=== PATIENT | female | born 1965 | race Caucasian/White ===

== ENCOUNTER → 2017-09-05 14:50 | Outpatient (CLI) | payer OTHER, SELFPAY ==
[2017-09-05 18:12] LABS: Absolute Lymphocyte Count 2.26 X10^3/ul (0.83-4.51); Absolute Neutrophil Count 4.5 X10^3/uL (2.0-7.7); Basophil# 0.05 X10^3/uL; Basophil% 0.6 % (0-1); Eosinophil# 0.19 X10^3/uL; Eosinophils% 2.4 % (0-5); Hematocrit 41.1 % (37-47); Hemoglobin 13.1 g/dl (12.0-15.0); Lymphocyte # 2.26 X10^3/ul (4.0); Mean Corp Hgb Conc 31.9 g/gl (32-36); Mean Corpuscular Hgb 27.1 pg (27.0-32.0); Mean Corpuscular Volume 85.1 fL (81-99); Mean Platelet Vol. 10.2 fl (6.2-12.0); Monocyte# 0.82 X10^3/uL; Monocyte% 10.5 % (0-10); Neutrophil # 4.46 X10^3/uL (2.7-7.7); Neutrophil % 57.4 % (47-70); Platelet Count 292 K/mm3 (150-450); RBC Distribution Width CV 13.9 % (11.6-14.6); RBC Distribution Width SD 43.3 fl (35.1-43.9); Red Blood Count 4.83 M/mm3 (4.2-5.4); White Blood Count 7.8 K/mm3 (4.4-11.0)
[2017-09-05 18:29] LABS: Anion Gap 8 (5-15); BUN 23 mg/dL (7-18); BUN/Creat Ratio 21.7 RATIO (10-20); Calcium,Total 9.3 mg/dL (8.5-10.1); Chloride 104 mmol/L (98-107); Cholesterol 211 mg/dL (200); Creatinine, Serum 1.06 mg/dL (0.55-1.02); EST Glomerular Filtration Rate 58 mL/min (>60); Est Glom Filt Rate - Afr Amer 70 mL/min (>60); Glucose 94 mg/dL (74-106); High Density Lipoprotein 58 mg/dL; Potassium 3.6 mmol/L (3.5-5.1); Sodium Level 142 mmol/L (136-145); Thyroid Stim Hormone (TSH) 1.24 uIU/mL (0.358-3.74); Triglycerides 146 mg/dL; Very Low Density Lipoprotein 29 mg/dL (5-40)
[2017-09-05 18:30] LABS: POSITIVE COUNT NO; POSITIVE DIFFERENTIAL NO; POSITIVE MORPHOLOGY NO
== END ==
PROVIDERS: Family Provider Family Medicine; PCP Family Medicine; Visit Provider Family Medicine
DX: Z00.00 Encounter for general adult medical examination without abnormal findings (principal); F32.9 Major depressive disorder, single episode, unspecified
CPT/HCPCS: 36415; 80048; 80061; 84443; 85025

== ENCOUNTER → 2019-09-13 16:31 | Outpatient (CLI) | payer BC, SELFPAY ==
--- NOTE | 2019-09-13 16:36 | RAD_ITS ---
STUDY: X-RAY - LUMBAR SPINE REASON FOR EXAM: Female, 53 years old. Low back pain and into both legs x 5 months TECHNIQUE: 5 view(s) of the lumbar spine were obtained. COMPARISON: 2009 FINDINGS: Normal lumbar lordosis. There is no substantial scoliosis. There is a normal alignment of the vertebrae in the lateral view from L1 to L4. There is a grade 1 spondylolisthesis at L4-5. L5 and S1 align anatomically. Normal vertebral bodies and endplates. Mild disc space narrowing throughout the lumbar spine. There is no demonstrated fracture. The soft tissue structures are unremarkable. RAD/L/S Spine Min 4 Views IMPRESSION: Mild degenerative changes with grade 1 spondylolisthesis at L4-5 Electronically Signed: Ervin Zuniga MD at 17:54 EDT , Service support ,
== END ==
PROVIDERS: PCP Family Medicine; Referring Provider Family Medicine; Visit Provider Family Medicine
DX: M54.9 Dorsalgia, unspecified (principal)
CPT/HCPCS: 72110

== ENCOUNTER 2020-02-25 01:08 | Emergency (ER) | payer BC, SELFPAY ==
[2020-02-25 01:09] VITALS: BP 110/71; PULSE 75; RESP 16; TEMP 36.6; O2SAT 96; BMI 34.3
--- NOTE | 2020-02-25 01:17 | RAD_ITS ---
STUDY: X-RAY - PELVIS AND RIGHT HIP REASON FOR EXAM: Female, 54 years old. Mid femur pain after fall. TECHNIQUE: 3 views of the pelvis and hip. COMPARISON: Right femur February 25, 2020. CT abdomen and pelvis April 27, 2016. FINDINGS: There is a non-specific bowel gas pattern. Normal visualized soft tissue structures. Normal bilateral iliac wings, sacroiliac joints and visualized sacrum. Normal bilateral superior and inferior pubic rami. Normal pubic symphysis. Normal bilateral ischial tuberosities. Normal visualized femoral head. Normal acetabulum. Normal hip joint. There are several sclerotic densities overlying the inferior left iliac bone compatible with incidental bone islands unchanged since April 2016. RAD/HIP, UNI W/ Pelvis 2-3 Views IMPRESSION: No acute findings are in the pelvis or right hip. Electronically Signed: Dipak Young MD at 2:02 EST , Service support ,
--- NOTE | 2020-02-25 01:17 | RAD_ITS ---
STUDY: X-RAY - RIGHT FEMUR REASON FOR STUDY: Female, 54 years old. Femur pain after fall. TECHNIQUE: 4 view(s) of the femur. COMPARISON: None. FINDINGS: Normal visualized femur. Normal visualized soft tissue structure. On the lateral view obliquely oriented linear lucency, posterior cortex of the midshaft likely representing an incidental nutrient canal. RAD/Femur Min 2 Views IMPRESSION: Normal x-ray examination of the femur as above. Electronically Signed: Dipak Young MD at 2:05 EST , Service support ,
--- NOTE | 2020-02-25 01:17 | ED.VIS.GEN ---
History of Present Illness Chief Complaint: Lower Extremity Injury Informant: Patient Narrative: Patient stated that she had a fall just prior to arrival. She was walking her dog who was chasing a possum and pulled her over. She is having pain in the right buttock region with some radicular pain down the posterior hamstring. Worsened by movement. She is unsure if she fell on the side but she is having pain only in this area. History of labral tear in the right hip that she is going to see orthopedics for but has not seen yet. This feels different. Worse by movement. Was unable to ambulate brought in by squad who gave her intramuscular fentanyl just prior to arrival. She continues to have pain however. Past Medical History - Allergies and Home Meds Allergies/Adverse Reactions: Allergies morphine Adverse Reaction (Verified 02/25/20 01:12) Vomiting Primary Care Physician: Maciel Castaneda MD [Primary Care Provider] - Prior records reviewed: Yes Past Medical History: - - Hypertension Surgical History: - - Reviewed Smoking Status: Never smoker Alcohol: None Drugs: None Review of Systems General: Denies: Chills, Fever, Sweats Eyes: Denies: Visual changes - bilaterally, Diplopia ENT: Denies: Rhinorrhea, Sore throat Cardiovascular: Denies: Chest pain, Palpitations Respiratory: Denies: Dyspnea, Cough, Dyspnea on exertion Gastrointestinal: Denies: Abdominal pain, Nausea, Vomiting, Diarrhea, Melena, Hematochezia Genitourinary: Denies: Dysuria, Hematuria, Frequency Musculoskeletal: Reports: Extremity Pain - See HPI. Denies: Back pain Skin: Denies: Rash, Wounds Neurological: Denies: Headache, Weakness, Numbness Physical Exam Vital Signs/Narrative: Vital Signs Temp Pulse Resp BP Pulse Ox 02/25/20 01:09 97.9 F 75 16 110/71 96 General: Well nourished, Well developed, No Acute Distress Head: Normocephalic, Atraumatic Eyes: Perrl, EOMI ENT: Moist mucous membranes, No rhinorrhea Neck: Supple, Nontender Cardiovascular: Regular rate, Regular rhythm, No murmurs Respiratory: No distress, CTA bilaterally, Chest nontender Abdomen: Soft, Nontender, Nondistended, Normal bowel sounds Back: Nontender, Normal Inspection Extremities: Nontender, No edema, Tenderness - Tenderness in the right buttock region deep. Decreased range of motion secondary to pain. Skin: Normal color, No rash Neurological: Alert, Oriented x3, Cranial nerves II-XII grossly intact, Normal Strength, Normal Sensation Psychological: Normal affect, Normal Mood Diagnostic/Tx/Re-eval - Medical Decision Making X-ray of the right hip and femur obtained. Is negative. At this time patient reevaluated. At this time I think she has a hamstring strain or tear. She has difficulty doing a hamstring curl. I do not suspect this is sciatica. She was given Sergey wrap and crutches given an injection of Dilaudid for pain. She will follow-up as an outpatient ED Disposition - Plan for ED Patient: Disposition: Home or Assisted Living Diagnosis: Hamstring injury Instructions: ED Strain Muscle Ext Prescriptions: Oxycodone HCl/Acetaminophen [Percocet 5/325] 1 - 2 tab PO Q6H PRN PRN 3 Days #12 tab PRN Reason: Pain Prescription Printed Referrals: Maciel Castaneda MD [Primary Care Provider] -
[2020-02-25] MEDS: HYDROmorphone 1 MG/ML Syringe IM (02:26)
[2020-02-25 03:17] VITALS: BP 98/60; PULSE 72; RESP 18; O2SAT 98
== END 2020-02-25 03:19 | disposition home or self-care (01) ==
PROVIDERS: Emergency Provider Emergency Medicine; PCP Family Medicine
DX: S76.301A Unspecified injury of muscle, fascia and tendon of the posterior muscle group at thigh level, right thigh, initial encounter (principal); W19.XXXA Unspecified fall, initial encounter; Y93.K1 Activity, walking an animal; Y92.9 Unspecified place or not applicable; Y99.9 Unspecified external cause status; I10 Essential (primary) hypertension; Z79.899 Other long term (current) drug therapy
CPT/HCPCS: 73502; 73552; 96372; 99285

== ENCOUNTER 2024-10-24 10:38 | Inpatient (IN) | payer BC, SELFPAY ==
[2024-10-24] VITALS (9 sets, daily range): BP systolic 118–141; BP diastolic 62–90; PULSE 63–93; RESP 14–25; TEMP 36.2–36.4; O2SAT 96–100; BMI 29.2; BMI 29.0
--- NOTE | 2024-10-24 11:07 | CT_ITS ---
PROCEDURE: ORB SELLA POST FOSSA EAR W/CON 10/24/2024 REASON FOR EXAM: RIGHT EYE PAIN AND SWELLING TECHNIQUE: ORB SELLA POST FOSSA EAR W/CON CONTRAST: Isovue 370 VOLUME: 100 mL One or more dose reduction techniques were used (e.g., Automated exposure control, adjustment of the mA and/or kV according to patient size, use of iterative reconstruction technique). RADIATION DOSE SUMMARY: CTDlvol: 29.38 mGy DLP: 429.92 mGycm COMPARISON: None FINDINGS: Globes: Unremarkable Extraocular Muscles: Unremarkable Orbits: There is evidence of a 3.3 cm x 1.4 cm by 2.1 cm soft tissue mass in the extraconal space along the medial aspect of the right orbit causing bony erosion/destruction of the medial wall of the right ethmoid sinus. A neoplastic process should be ruled out. Lacrimal Glands: Unremarkable Bones: Bony destruction along the medial aspect of the right ethmoid sinus. Other: Visualized paranasal sinuses and intracranial structures: Mucosal thickening of the right maxillary sinus. CT/Orb Sella Post Fossa Ear W/CON IMPRESSION: Soft tissue mass along the medial extraconal space of the right orbit with bony erosion/destruction of the medial wall of the right ethmoid sinus. A neoplastic process should be ruled. Reading Location: [place] [id number]
--- NOTE | 2024-10-24 11:07 | CT_ITS ---
PROCEDURE: ORB SELLA POST FOSSA EAR W/CON 10/24/2024 REASON FOR EXAM: RIGHT EYE PAIN AND SWELLING TECHNIQUE: ORB SELLA POST FOSSA EAR W/CON CONTRAST: Isovue 370 VOLUME: 100 mL One or more dose reduction techniques were used (e.g., Automated exposure control, adjustment of the mA and/or kV according to patient size, use of iterative reconstruction technique). RADIATION DOSE SUMMARY: CTDlvol: 29.38 mGy DLP: 429.92 mGycm COMPARISON: None FINDINGS: Globes: Unremarkable Extraocular Muscles: Unremarkable Orbits: There is evidence of a 3.3 cm x 1.4 cm by 2.1 cm soft tissue mass in the extraconal space along the medial aspect of the right orbit causing bony erosion/destruction of the medial wall of the right ethmoid sinus. A neoplastic process should be ruled out. Lacrimal Glands: Unremarkable Bones: Bony destruction along the medial aspect of the right ethmoid sinus. Other: Visualized paranasal sinuses and intracranial structures: Mucosal thickening of the right maxillary sinus. CT/Orb Sella Post Fossa Ear W/CON IMPRESSION: Soft tissue mass along the medial extraconal space of the right orbit with bony erosion/destruction of the medial wall of the right ethmoid sinus. A neoplastic process should be ruled. Reading Location: [place] [id number]
--- NOTE | 2024-10-24 11:15 | EX.ED.VIS.EY ---
HPI History of Present Illness Chief Complaint: Eye Problem Narrative Narrative: Patient is a 59-year-old female with past medical history of hyperlipidemia, GERD, hypertension, history of kidney cancer, ductal surgery on her right eye few years ago who presents to the emergency department chief complaint of right eye pain. States that she started develop discomfort on Monday and notes that she also had a headache associated with this. States that she feels like her vision is normal out of that eye she states that she followed up with her primary care physician originally and they ultimately sent her here to the emergency department to be further evaluated. Patient denies any known injuries denies any contact use. Patient feels that her right eyelid is droopy and states that she does have some discomfort if she attempts to move her eye. [facility] Medical History Hyperlipidemia Acid reflux Hypertension History of kidney cancer Home Medications ?Medication ?Instructions ?Recorded ?Last Taken ?Type lisinopril 20 mg tablet 20 mg PO DAILY 02/25/20 Unknown History pantoprazole 40 mg tablet,delayed 40 mg PO DAILY 02/25/20 Unknown History release permethrin 5 % topical cream 60 gm TRANSDERM. DAILY 02/25/20 Unknown History atorvastatin 10 mg tablet 10 mg PO QHS cholesterol 10/24/24 Unknown History estradiol 1 mg tablet 1 mg PO DAILY 10/24/24 Unknown History Allergy/AdvReac Type Severity Reaction Status Date / Time morphine AdvReac Vomiting Verified 10/24/24 10:39 Surgical History Hx of eye surgery Hx of hysterectomy History of kidney surgery History of back surgery Social History Smoking Status: Never smoker ROS ROS ED ROS Narrative Constitutional: Denies any fevers, chills, headaches Eyes: Complains of right eye pain as noted above denies double vision blurry vision Cardiovascular: Denies chest pain Neurological: Denies numbness, aches, tingling Skin: Denies any rashes or lesions EXAM Physical Exam Narrative Exam Narrative: General: Patient lying in bed rest comfortably did not appear to be in acute distress Head: Atraumatic, normocephalic Eyes: PERRL bilaterally, EOMI bilaterally, no conjunctival injection noted, fluorescein stain performed and no uptake noted no concern for nail abrasion, no Sabino sign, intraocular pressure was noted be 18 Neck: Soft, supple, trachea midline Cardiovascular: Regular rate and rhythm Extremities: +5/5 strength noted in the bilateral upper and lower extremities Neurological: Patient following commands and that she was at [facility] year is 2024 Skin: Warm, dry, intact no rashes lesions noted Const Vital Signs: 10/24/24 10:39 Temperature 97.1 F L Temperature Source Temporal Pulse Rate 63 Respiratory Rate 14 Blood Pressure 120/85 H Blood Pressure Mean 96 Pulse Ox 98 Oxygen Delivery Method Room Air MDM MDM MDM Narrative Medical decision making narrative: Patient is a 59-year-old female who presented to the emergency department chief complaint of right eye pain. On the differential diagnosis includes but limited to preseptal cellulitis, orbital cellulitis, acute angle-closure glaucoma, corneal abrasion. Once workup is obtained reviewed she will be reevaluated. I reviewed the records faxed to PCPs office and she was sent here for concern for a serious underlying condition per documentation physician business office assistant Parth. Patient's BMP reviewed showed sodium was normal 139, potassium normal 4.3, creatinine 1.12. Patient's CT orbit was reviewed and showed soft tissue mass along the medial extraconal space of the right orbit with bony erosion/destruction of the medial wall of the right ethmoid sinus a neoplastic process should be ruled out. I called and spoke with on-call drying can worker Dr. Martins who is recommending transfer as she needs this further evaluated and is requesting transfer to [facility] or [facility]. Patient had her partial kidney resection after cancer through the [facility] system therefore I reached out to [facility]. I spoke with tumor specialist and he will except the patient for transfer. I notified the patient who is agreeable this plan all question concerns answered. Discharge Plan Triage Chief Complaint: Eye Problem ED Provider: Ar Medley Dx/Rx/DC Orders Clinical Impression: Mass of eye, right, History of kidney cancer, Hypertension, Hyperlipidemia Prescriptions: No Action lisinopril 20 MG tablet 20 mg PO DAILY permethrin 60 GM cream 60 gm TRANSDERM. DAILY pantoprazole 40 MG tablet 40 mg PO DAILY atorvastatin 10 mg tablet 10 mg PO QHS estradiol 1 mg tablet 1 mg PO DAILY Primary Care Provider: Maciel Castaneda Referrals: Maciel Castaneda MD [Primary Care Provider] - Print Language: Tanzanian Disposition Disposition: DC/Tx to Another Type of HCF
--- NOTE | 2024-10-24 11:15 | EX.ED.VIS.EY ---
HPI History of Present Illness Chief Complaint: Eye Problem Narrative Narrative: Patient is a 59-year-old female with past medical history of hyperlipidemia, GERD, hypertension, history of kidney cancer, ductal surgery on her right eye few years ago who presents to the emergency department chief complaint of right eye pain. States that she started develop discomfort on Monday and notes that she also had a headache associated with this. States that she feels like her vision is normal out of that eye she states that she followed up with her primary care physician originally and they ultimately sent her here to the emergency department to be further evaluated. Patient denies any known injuries denies any contact use. Patient feels that her right eyelid is droopy and states that she does have some discomfort if she attempts to move her eye. [facility] Medical History Hyperlipidemia Acid reflux Hypertension History of kidney cancer Home Medications ?Medication ?Instructions ?Recorded ?Last Taken ?Type lisinopril 20 mg tablet 20 mg PO DAILY 02/25/20 Unknown History pantoprazole 40 mg tablet,delayed 40 mg PO DAILY 02/25/20 Unknown History release permethrin 5 % topical cream 60 gm TRANSDERM. DAILY 02/25/20 Unknown History atorvastatin 10 mg tablet 10 mg PO QHS cholesterol 10/24/24 Unknown History estradiol 1 mg tablet 1 mg PO DAILY 10/24/24 Unknown History Allergy/AdvReac Type Severity Reaction Status Date / Time morphine AdvReac Vomiting Verified 10/24/24 10:39 Surgical History Hx of eye surgery Hx of hysterectomy History of kidney surgery History of back surgery Social History Smoking Status: Never smoker ROS ROS ED ROS Narrative Constitutional: Denies any fevers, chills, headaches Eyes: Complains of right eye pain as noted above denies double vision blurry vision Cardiovascular: Denies chest pain Neurological: Denies numbness, aches, tingling Skin: Denies any rashes or lesions EXAM Physical Exam Narrative Exam Narrative: General: Patient lying in bed rest comfortably did not appear to be in acute distress Head: Atraumatic, normocephalic Eyes: PERRL bilaterally, EOMI bilaterally, no conjunctival injection noted, fluorescein stain performed and no uptake noted no concern for nail abrasion, no Sabino sign, intraocular pressure was noted be 18 Neck: Soft, supple, trachea midline Cardiovascular: Regular rate and rhythm Extremities: +5/5 strength noted in the bilateral upper and lower extremities Neurological: Patient following commands and that she was at [facility] year is 2024 Skin: Warm, dry, intact no rashes lesions noted Const Vital Signs: 10/24/24 10:39 Temperature 97.1 F L Temperature Source Temporal Pulse Rate 63 Respiratory Rate 14 Blood Pressure 120/85 H Blood Pressure Mean 96 Pulse Ox 98 Oxygen Delivery Method Room Air MDM MDM MDM Narrative Medical decision making narrative: Patient is a 59-year-old female who presented to the emergency department chief complaint of right eye pain. On the differential diagnosis includes but limited to preseptal cellulitis, orbital cellulitis, acute angle-closure glaucoma, corneal abrasion. Once workup is obtained reviewed she will be reevaluated. I reviewed the records faxed to PCPs office and she was sent here for concern for a serious underlying condition per documentation physician geriatric nursing assistant Parth. Patient's BMP reviewed showed sodium was normal 139, potassium normal 4.3, creatinine 1.12. Patient's CT orbit was reviewed and showed soft tissue mass along the medial extraconal space of the right orbit with bony erosion/destruction of the medial wall of the right ethmoid sinus a neoplastic process should be ruled out. I called and spoke with on-call cane stripper Dr. Martins who is recommending transfer as she needs this further evaluated and is requesting transfer to [facility] or [facility]. Patient had her partial kidney resection after cancer through the [facility] system therefore I reached out to [facility]. I spoke with tumor specialist and he will except the patient for transfer. I notified the patient who is agreeable this plan all question concerns answered. Discharge Plan Triage Chief Complaint: Eye Problem ED Provider: Ar Medley Dx/Rx/DC Orders Clinical Impression: Mass of eye, right, History of kidney cancer, Hypertension, Hyperlipidemia Prescriptions: No Action lisinopril 20 MG tablet 20 mg PO DAILY permethrin 60 GM cream 60 gm TRANSDERM. DAILY pantoprazole 40 MG tablet 40 mg PO DAILY atorvastatin 10 mg tablet 10 mg PO QHS estradiol 1 mg tablet 1 mg PO DAILY Primary Care Provider: Maciel Castaneda Referrals: Maciel Castaneda MD [Primary Care Provider] - Print Language: Zambian Disposition Disposition: DC/Tx to Another Type of HCF
[2024-10-24] MEDS: Tetracaine 0.5% Ophthalmic Bottle 1 DRP RIGHT EYE (11:23)
[2024-10-24 12:10] LABS: Anion Gap 9 (5-15); BUN 19 mg/dL (4-19); BUN/Creat Ratio 17.1 RATIO (10-20); Calcium,Total 9.8 mg/dL (7.6-11.0); Carbon Dioxide 27.0 mmol/L (21.0-32.0); Chloride 103 mmol/L (98-108); Estimated Creatinine Clearance 58.45 ml/min (50-250); Glucose 109 mg/dL (70-99); Potassium 4.3 mmol/L (3.3-5.1)
--- NOTE | 2024-10-24 18:18 | PCA ---
CALLED [facility] AND FAXED FACE SHEET AND SENT IMAGES. THEY ACCEPTED PATIENT AT MAIN. JUST WAITING FOR A BED.
--- NOTE | 2024-10-24 18:18 | PCA ---
CALLED [facility] AND FAXED FACE SHEET AND SENT IMAGES. THEY ACCEPTED PATIENT AT MAIN. JUST WAITING FOR A BED.
--- NOTE | 2024-10-24 20:29 | CM.ED ---
Social work Reason for referral: support Referral source: case find This patient is known to SW via jain. SW entered patient's room, asking if patient would be okay for SW to visit. Patient accepted SW visit and patient began talking about the concerns patient had regarding the mass found behind patient's eye. Patient thanked SW for time spent with patient; patient denied further needs at this time, stating patient's immediate family members had been in to help support patient as well. Denice Pizarro, VETERINARY TECHNOLOGIST, NON PROFIT JOB TITLES
--- NOTE | 2024-10-24 20:29 | CM.ED ---
Social work Reason for referral: support Referral source: case find This patient is known to SW via nondenominational. SW entered patient's room, asking if patient would be okay for SW to visit. Patient accepted SW visit and patient began talking about the concerns patient had regarding the mass found behind patient's eye. Patient thanked SW for time spent with patient; patient denied further needs at this time, stating patient's immediate family members had been in to help support patient as well. Denice Pizarro, CATERING AND EVENTS MANAGER, ELEVATOR MECHANIC
--- NOTE | 2024-10-24 21:28 | PCM.HP.STD ---
[facility] - General General Date of Admission: 10/24/24 Date of Service: 10/24/24 Chief Complaint: Right eye pain HPI Narrative VIPUL ARCHIBALD, is a 59 F who presented to [facility] ED on 10/24/2024 with right eye pain. CT orbit showed a 3.3 x 1.4 x 2.1 cm soft tissue mass in the extraconal space along the medial right orbit causing bony erosion/obstruction of the medial wall concerning for neoplastic process. Case was discussed with Dr. Rucker with ophthalmology who recommended transfer to a large tertiary center for further evaluation. Patient was accepted to [facility] but unfortunately no bed was available this evening, so hospitalist was contacted for admission. I saw the patient at bedside in the ED, son was present. Patient was sitting back comfortably in bed, conversing normally, in no acute distress. She had been given 2 doses of Tylenol 1000 mg during the day today for pain with moderate improvement in pain. However, she was started to have more pain again currently. Has morphine on allergy list but states she had vomiting with morphine when she was over 25 years ago. Thinks she has tolerated oxycodone without issue in the past. Patient's medical history is notable for renal cell carcinoma of the right kidney during a one third partial nephrectomy at [facility] in 2022. Has had no recurrent issues with this per her report. History otherwise significant for hypertension, hyperlipidemia and GERD. He denies any other recent issues with her health. Will be admitted for further management. [facility] Medical History Hyperlipidemia Acid reflux Hypertension History of kidney cancer Home Medications ?Medication ?Instructions ?Recorded ?Last Taken ?Type lisinopril 20 mg tablet 20 mg PO DAILY 02/25/20 Unknown History pantoprazole 40 mg tablet,delayed 40 mg PO DAILY 02/25/20 Unknown History release atorvastatin 10 mg tablet 10 mg PO QHS cholesterol 10/24/24 Unknown History estradiol 1 mg tablet 1 mg PO DAILY 10/24/24 Unknown History Allergy/AdvReac Type Severity Reaction Status Date / Time morphine AdvReac Vomiting Verified 10/24/24 10:39 Surgical History Hx of eye surgery Hx of hysterectomy History of kidney surgery History of back surgery Social History Smoking Status: Never smoker ROS Constitutional Constitutional: Denies chills, fatigue, fever(s) or weakness Eyes Eyes: Reports blurry vision, change in vision and eye pain; Denies discharge from eye(s) ENT HEENT: Denies sinus pressure or sore throat Cardiovascular Cardiovascular: Denies chest pain Respiratory/Chest Respiratory/Chest: Denies shortness of breath at rest Gastrointestinal Gastrointestinal: Denies abdominal pain Neurologic Neurologic: Reports headache(s); Denies dizziness or focal weakness Vital Signs Vital Signs Vital Signs: 10/24/24 10:39 10/24/24 12:41 10/24/24 14:00 Temperature 97.1 F L Temperature Source Temporal Pulse Rate 63 64 93 Respiratory Rate 14 14 16 Blood Pressure 120/85 H 118/62 128/84 H Blood Pressure Mean 96 80 98 Pulse Ox 98 99 99 Oxygen Delivery Method Room Air Room Air Room Air 10/24/24 16:00 10/24/24 18:00 10/24/24 20:00 Temperature Temperature Source Pulse Rate 80 73 Respiratory Rate 25 H 16 Blood Pressure 141/90 H 124/78 H 126/77 H Blood Pressure Mean 107 93 93 Pulse Ox 100 97 97 Oxygen Delivery Method Room Air Room Air Room Air Weight Weight: 82.2 kg Body Mass Index (BMI) 29.2 Physical Exam Const alert, oriented x3, no apparent distress, average body habitus, healthy appearing and well nourished Constitutional Narrative: Pleasant middle-age female, mildly anxious appearing but otherwise sitting back comfortably in bed, conversing normally, in no acute distress. General Appearance: cooperative, comfortable, well kempt and well developed HEENT normocephalic, head/scalp atraumatic, hearing grossly normal bilaterally, nasal mucous membranes and turbinates normal and moist oral mucous membranes Eyes PERRL, EOMs intact bilaterally and conjunctivae normal Neck full ROM, no lymphadenopathy and supple Lymph Lymphatic: no lymphadenopathy noted Chest inspection of chest normal Resp normal respiratory effort, normal air movement, no use of accessory muscles and clear to auscultation bilaterally Cardio regular rate, regular rhythm, no murmurs and peripheral pulses 2+ throughout GI normal to inspection, nondistended, normoactive bowel sounds, soft to palpation, non-tender and non-distended Back/Spine normal ROM Extremity normal to inspection, full ROM and no pedal edema Skin no rashes or lesions noted Psych mental status grossly normal Results Lab / Micro Data 10/24/24 11:15 Labs: Laboratory Results - last 24 hr 10/24/24 11:15: Sodium 139, Potassium 4.3, Chloride 103, Carbon Dioxide 27.0, Anion Gap 9, BUN 19, Creatinine 1.12, Estim Creat Clear Calc 58.45, Est GFR (MDRD) Non-Af 57 L, BUN/Creatinine Ratio 17.1, Glucose 109 H, Calcium 9.[address] Orbit Sella Inner 10/24/24 11:07 IMPRESSION: Soft tissue mass along the medial extraconal space of the right orbit with bony erosion/destruction of the medial wall of the right ethmoid sinus. A neoplastic process should be ruled. Reading Location: [place] [id number] Assessment & Plan Assessment/Plan (1) Mass of eye, right: PLAN: Plan Patient is a 59-year-old female who presented [facility] ED on 10/24/2024 with right eye pain. 1. Right orbital mass with right eye pain ? Admit under admission status to [facility]. CT orbit showed a 3.3 x 1.4 x 2.1 cm soft tissue mass in the extraconal space along the medial right orbit causing bony erosion/obstruction of the medial wall concerning for neoplastic process. Accepted for transfer to [facility], awaiting bed availability. Pain control with Tylenol, oxycodone and IV morphine as needed. Listed allergy to morphine is remote per patient and she is willing to try oxycodone and morphine again for pain. 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 Chronic medical conditions: ? Hypertension: Normotensive on admit. Continue home lisinopril. ? Hyperlipidemia: Continue home statin. ? GERD: Continue home PPI. ? History of renal cancer s/p partial nephrectomy in 2022 DVT prophylaxis: Lovenox CODE STATUS: Full code, verified Expected disposition: Transfer to [facility] Total clinical time spent by myself addressing the patient's medical issues, reviewing all the data, and collaborating with patient's care team: 75 minutes. Charges/Coding Visit Charges Inpatient E&M: 94979 Init Hosp L3
--- NOTE | 2024-10-24 21:33 | PN.HOSP_ITS ---
Hospitalist Note Patient was evaluated in the Emergency Department at [facility] on 10/24/2024. At the time of evaluation, transfer to a tertiary hospital was felt to be in the patient's best interest due to right orbital mass and need for ophthalmology. Attempts were made by the Emergency Department and/or the Hospitalist team to get patient to the appropriate level of care. Although the pt is accepted for transfer to [facility], there are no staffed beds currently available. Given the need for ongoing medical care, patient will be admitted to [facility] on 10/24/2024, and care will be provided here until [facility] has an available staffed bed. Pt and/or family are aware of the transfer, the reasoning behind the need for transfer, and that until a staffed bed becomes available, we will provide evidence-based care to the best of our abilities, with the limitations of care here being fully addressed.
--- NOTE | 2024-10-24 21:33 | PN.HOSP_ITS ---
Hospitalist Note Patient was evaluated in the Emergency Department at [facility] on 10/24/2024. At the time of evaluation, transfer to a tertiary hospital was felt to be in the patient's best interest due to right orbital mass and need for ophthalmology. Attempts were made by the Emergency Department and/or the Hospitalist team to get patient to the appropriate level of care. Although the pt is accepted for transfer to [facility], there are no staffed beds currently available. Given the need for ongoing medical care, patient will be admitted to [facility] on 10/24/2024, and care will be provided here until [facility] has an available staffed bed. Pt and/or family are aware of the transfer, the reasoning behind the need for transfer, and that until a staffed bed becomes available, we will provide evidence-based care to the best of our abilities, with the limitations of care here being fully addressed.
[2024-10-24 23:16] LABS: Hematocrit 38.6 % (37-47); Hemoglobin 12.5 g/dL (12.0-15.0); Immature Granulocytes Count 0.020 X10^3/uL (0.0-0.0); Mean Corp Hgb Conc 32.4 g/dL (32-36); Mean Corpuscular Volume 86.0 fL (81-99); Mean Platelet Vol. 9.5 fl (6.2-12.0); NRBC Flagged by Analyzer 0 % (0-5); Platelet Count 278 K/mm3 (150-450); RBC Distribution Width CV 13.2 % (11.6-14.6); RBC Distribution Width SD 41.3 fl (35.1-43.9); Red Blood Count 4.49 M/mm3 (4.2-5.4); White Blood Count 8.9 K/mm3 (4.4-11.0)
[2024-10-25 03:19] VITALS: BP 101/59; PULSE 60; RESP 16; TEMP 36.9; O2SAT 99
--- NOTE | 2024-10-25 07:01 | PN.HOSP_ITS ---
Reason for Visit Reason for Visit: Diagnoses Other specified disorders of eye and adnexa (10/24/24) Subjective Subjective Patient with no acute overnight events since admission with only noted complaints of mild pressure-like sensation behind her right eye and some dry sensation but otherwise no headache, nausea, emesis, lightheadedness or dizziness. Discussed at length that we are awaiting bed at [facility] and at that point once it is obtained she will be immediately transition there once ride arranged. Did discuss that unfortunately this may take several days. Patient denies fevers, chills, nausea, emesis, abdominal pain, chest pain or dyspnea. Objective Data Objective Data Vital Signs: Vital Signs Temp Pulse Resp BP Pulse Ox O2 Del Method 98.4 F 60 16 101/59 L 99 Room Air 10/25/24 03:19 10/25/24 03:19 10/25/24 03:19 10/25/24 03:19 10/25/24 03:19 10/25/24 03:19 Oxygen Delivery Method Room Air Weight: 179 lb 14.355 oz Body Mass Index (BMI) 29.0 Intake & Output: Intake and Output for Last 24 Hours 10/23/24 10/24/24 10/25/24 23:59 23:59 23:59 Intake Total 200 / 200 Balance 200 / 200 Lab / Micro Data 10/24/24 23:06 10/24/24 11:15 Labs: Laboratory Results - last 24 hr 10/24/24 11:15: Sodium 139, Potassium 4.3, Chloride 103, Carbon Dioxide 27.0, Anion Gap 9, BUN 19, Creatinine 1.12, Estim Creat Clear Calc 58.45, Est GFR (MDRD) Non-Af 57 L, BUN/Creatinine Ratio 17.1, Glucose 109 H, Calcium 9.8 10/24/24 23:06: WBC 8.9, RBC 4.49, Hgb 12.5, Hct 38.6, MCV 86.0, MCH 27.8, MCHC 32.4, RDW Std Deviation 41.3, RDW Coeff of Robbi 13.2, Plt Count 278, MPV 9.5, Immature Gran % (Auto) 0.200, Neut % (Auto) 59.2, Lymph % (Auto) 31.1, [place] % (Auto) 6.3, Eos % (Auto) 2.4, Baso % (Auto) 0.8, Absolute Neuts (auto) 5.3, Absolute Lymphs (auto) 2.76, Nucleated RBC % 0 Radiography Diagnostic Testing: Radiology Impression CT Orbit Sella Inner 10/24/24 11:07 IMPRESSION: Soft tissue mass along the medial extraconal space of the right orbit with bony erosion/destruction of the medial wall of the right ethmoid sinus. A neoplastic process should be ruled. Reading Location: [facility] Physical Exam Narrative Physical Examination: General: Awake, alert, oriented x 3 and cooperative, seated upright in MS bed, no acute distress, notes dry eyes and some pressure behind the eyes but no pain at this time. Skin: Normal color, normal turgor, no icterus, no cyanosis. HEENT: AT/NC, EOMI, PERRLA, mildly dry MM, mild bilateral scleral injection, vision intact. Lungs: Mildly diminished, greater bases, poor effort, no rales, ronchi or wheezing. Heart: Regular rate and rhythm; no gallop, rub audible. Abdomen: Soft, overweight, NTTP, distant BS, no obvious distention. Extremities: No cyanosis, no clubbing, no marked distal edema noted. Neurological: Patient awake, alert, oriented as noted, cognitive function intact; pupils equally reactive to light and accommodation, cranial nerves grossly normal, moving all 4 extremities, no focal deficits, strength preserved. Psychiatric: Affect appears fatigued otherwise normal, no acute evidence of depressive or anxiety feelings. Assessment & Plan Assessment/Plan (1) Mass of eye, right: PLAN: Plan The patient is a 59 y/o F w/ PMHx: HTN, HLD, GERD, Hx Renal Cell CA who presents to the [facility] ED on 10/24/2024 with history of discomfort and pressure behind the right eye prompting ED evaluation. #1. Right orbital mass with associated right eye pain/pressure of unclear significance however concern for possible bony erosion/obstruction to the medial wall concerning for neoplastic process: Unfortunately given the fact that there is no tertiary bed availability at [facility] at this time patient has been accepted but while awaiting bed until transitioned admitted to medical surgical floor, will continue oral and IV pain medication for breakthrough pain, as noted previously does have a history of renal cell cancer thus some concerns for Von Hippel-Lindau syndrome. #2. History of renal cell cancer: Status post partial nephrectomy in 2022, considered remission, unclear as noted if related with #1 with concern for possible von Hippel-Lindau syndrome. Awaiting tertiary facility transfer as noted. #3. Hypertension: Continue home regimen including lisinopril, PRN hydralazine if necessary. #4. Hyperlipidemia: Will continuation on statin therapy. #5. GERD: Will continue on PPI. #6. Overweight: Weight loss and lifestyle changes encouraged. #7. DVT prophylaxis: Lovenox. Charges/Coding Visit Charges Inpatient E&M: 12973 Subs Hosp L2
--- NOTE | 2024-10-25 07:01 | PN.HOSP_ITS ---
Reason for Visit Reason for Visit: Diagnoses Other specified disorders of eye and adnexa (10/24/24) Subjective Subjective Patient with no acute overnight events since admission with only noted complaints of mild pressure-like sensation behind her right eye and some dry sensation but otherwise no headache, nausea, emesis, lightheadedness or dizziness. Discussed at length that we are awaiting bed at [facility] and at that point once it is obtained she will be immediately transition there once ride arranged. Did discuss that unfortunately this may take several days. Patient denies fevers, chills, nausea, emesis, abdominal pain, chest pain or dyspnea. Objective Data Objective Data Vital Signs: Vital Signs Temp Pulse Resp BP Pulse Ox O2 Del Method 98.4 F 60 16 101/59 L 99 Room Air 10/25/24 03:19 10/25/24 03:19 10/25/24 03:19 10/25/24 03:19 10/25/24 03:19 10/25/24 03:19 Oxygen Delivery Method Room Air Weight: 179 lb 14.355 oz Body Mass Index (BMI) 29.0 Intake & Output: Intake and Output for Last 24 Hours 10/23/24 10/24/24 10/25/24 23:59 23:59 23:59 Intake Total 200 / 200 Balance 200 / 200 Lab / Micro Data 10/24/24 23:06 10/24/24 11:15 Labs: Laboratory Results - last 24 hr 10/24/24 11:15: Sodium 139, Potassium 4.3, Chloride 103, Carbon Dioxide 27.0, Anion Gap 9, BUN 19, Creatinine 1.12, Estim Creat Clear Calc 58.45, Est GFR (MDRD) Non-Af 57 L, BUN/Creatinine Ratio 17.1, Glucose 109 H, Calcium 9.8 10/24/24 23:06: WBC 8.9, RBC 4.49, Hgb 12.5, Hct 38.6, MCV 86.0, MCH 27.8, MCHC 32.4, RDW Std Deviation 41.3, RDW Coeff of Robbi 13.2, Plt Count 278, MPV 9.5, Immature Gran % (Auto) 0.200, Neut % (Auto) 59.2, Lymph % (Auto) 31.1, [place] % (Auto) 6.3, Eos % (Auto) 2.4, Baso % (Auto) 0.8, Absolute Neuts (auto) 5.3, Absolute Lymphs (auto) 2.76, Nucleated RBC % 0 Radiography Diagnostic Testing: Radiology Impression CT Orbit Sella Inner 10/24/24 11:07 IMPRESSION: Soft tissue mass along the medial extraconal space of the right orbit with bony erosion/destruction of the medial wall of the right ethmoid sinus. A neoplastic process should be ruled. Reading Location: [facility] Physical Exam Narrative Physical Examination: General: Awake, alert, oriented x 3 and cooperative, seated upright in MS bed, no acute distress, notes dry eyes and some pressure behind the eyes but no pain at this time. Skin: Normal color, normal turgor, no icterus, no cyanosis. HEENT: AT/NC, EOMI, PERRLA, mildly dry MM, mild bilateral scleral injection, vision intact. Lungs: Mildly diminished, greater bases, poor effort, no rales, ronchi or wheezing. Heart: Regular rate and rhythm; no gallop, rub audible. Abdomen: Soft, overweight, NTTP, distant BS, no obvious distention. Extremities: No cyanosis, no clubbing, no marked distal edema noted. Neurological: Patient awake, alert, oriented as noted, cognitive function intact; pupils equally reactive to light and accommodation, cranial nerves grossly normal, moving all 4 extremities, no focal deficits, strength preserved. Psychiatric: Affect appears fatigued otherwise normal, no acute evidence of depressive or anxiety feelings. Assessment & Plan Assessment/Plan (1) Mass of eye, right: PLAN: Plan The patient is a 59 y/o F w/ PMHx: HTN, HLD, GERD, Hx Renal Cell CA who presents to the [facility] ED on 10/24/2024 with history of discomfort and pressure behind the right eye prompting ED evaluation. #1. Right orbital mass with associated right eye pain/pressure of unclear significance however concern for possible bony erosion/obstruction to the medial wall concerning for neoplastic process: Unfortunately given the fact that there is no tertiary bed availability at [facility] at this time patient has been accepted but while awaiting bed until transitioned admitted to medical surgical floor, will continue oral and IV pain medication for breakthrough pain, as noted previously does have a history of renal cell cancer thus some concerns for Von Hippel-Lindau syndrome. #2. History of renal cell cancer: Status post partial nephrectomy in 2022, considered remission, unclear as noted if related with #1 with concern for possible von Hippel-Lindau syndrome. Awaiting tertiary facility transfer as noted. #3. Hypertension: Continue home regimen including lisinopril, PRN hydralazine if necessary. #4. Hyperlipidemia: Will continuation on statin therapy. #5. GERD: Will continue on PPI. #6. Overweight: Weight loss and lifestyle changes encouraged. #7. DVT prophylaxis: Lovenox. Charges/Coding Visit Charges Inpatient E&M: 29597 Subs Hosp L2
[2024-10-25 09:46] VITALS: BP 116/78; PULSE 66; RESP 18; TEMP 36.7; O2SAT 97
[2024-10-25] MEDS: Senna Tablet 1 TABLET PO ×2 (09:55→21:56)
[2024-10-25 15:28] VITALS: BP 106/70; PULSE 65; RESP 18; TEMP 36.6; O2SAT 96
[2024-10-25 21:48] VITALS: BP 102/70; PULSE 68; RESP 18; TEMP 36.9; O2SAT 99
[2024-10-25] MEDS: 0.9% Saline Lock 10 ML Syringe IV (21:56)
[2024-10-25] MEDS: MELATONIN 3 MG TABLET PO (21:56)
[2024-10-26 03:48] VITALS: BP 95/61; PULSE 63; RESP 18; TEMP 36.4; O2SAT 92
[2024-10-26 06:07] LABS: Hematocrit 38.1 % (37-47); Hemoglobin 12.4 g/dL (12.0-15.0); Immature Granulocytes Count 0.000 X10^3/uL (0.0-0.0); Mean Corp Hgb Conc 32.5 g/dL (32-36); Mean Corpuscular Volume 85.8 fL (81-99); Mean Platelet Vol. 10.1 fl (6.2-12.0); NRBC Flagged by Analyzer 0 % (0-5); Platelet Count 239 K/mm3 (150-450); RBC Distribution Width CV 13.2 % (11.6-14.6); RBC Distribution Width SD 41.3 fl (35.1-43.9); Red Blood Count 4.44 M/mm3 (4.2-5.4); White Blood Count 6.9 K/mm3 (4.4-11.0)
[2024-10-26 06:38] LABS: AST(SGOT) 16 U/L (<=31); Alanine Aminotransfer ALT/SGPT 8 U/L (<=34); Albumin, Serum 3.8 g/dL (3.5-5.0); Alkaline Phosphatase 64 U/L (35-104); Anion Gap 10 (5-15); BUN 21 mg/dL (4-19); BUN/Creat Ratio 20.9 RATIO (10-20); Calcium,Total 9.2 mg/dL (7.6-11.0); Carbon Dioxide 23.5 mmol/L (21.0-32.0); Chloride 103 mmol/L (98-108); Estimated Creatinine Clearance 66.57 ml/min (50-250); Globulin 2.6 g/dL (2.2-4.2); Glucose 83 mg/dL (70-99); Potassium 4.1 mmol/L (3.3-5.1)
--- NOTE | 2024-10-26 07:13 | PN.HOSP_ITS ---
Reason for Visit Reason for Visit: Diagnoses Other specified disorders of eye and adnexa (10/24/24) Subjective Subjective Patient overnight with no acute events per self and per nursing report. She does report this morning low normal range blood pressure but MAP has remained appropriate and the lowest systolic was 101. Patient notes some more discomfort just behind the right eye as well as some itching to the right eye with associated mild headache. Discussed plan of care which included continued inpatient evaluation/close monitoring until bed availability at [facility]. Patient denies fevers, chills, nausea, emesis, abdominal pain, chest pain or dyspnea. Objective Data Objective Data Vital Signs: Vital Signs Temp Pulse Resp BP Pulse Ox O2 Del Method 97.5 F L 63 18 95/61 92 Room Air 10/26/24 03:48 10/26/24 03:48 10/26/24 03:48 10/26/24 03:48 10/26/24 03:48 10/26/24 03:48 Oxygen Delivery Method Room Air Weight: 179 lb 14.355 oz Body Mass Index (BMI) 29.0 Intake & Output: Intake and Output for Last 24 Hours 10/24/24 10/25/24 10/26/24 23:59 23:59 23:59 Intake Total 1120 / 1120 350 / 350 Balance 1120 / 1120 350 / 350 Lab / Micro Data 10/26/24 05:05 10/26/24 05:05 Labs: Laboratory Results - last 24 hr 10/26/24 05:05: WBC 6.9, RBC 4.44, Hgb 12.4, Hct 38.1, MCV 85.8, MCH 27.9, MCHC 32.5, RDW Std Deviation 41.3, RDW Coeff of Robbi 13.2, Plt Count 239, MPV 10.1, Immature Gran % (Auto) 0.000, Neut % (Auto) 44.0 L, Lymph % (Auto) 42.8 H, [place] % (Auto) 8.2, Eos % (Auto) 4.4, Baso % (Auto) 0.6, Absolute Neuts (auto) 3.0, Absolute Lymphs (auto) 2.94, Nucleated RBC % 0, Sodium 137, Potassium 4.1, Chloride 103, Carbon Dioxide 23.5, Anion Gap 10, BUN 21 H, Creatinine 0.98, Estim Creat Clear Calc 66.57, Est GFR (MDRD) Non-Af 66, BUN/Creatinine Ratio 20.9 H, Glucose 83, Calcium 9.2, Total Bilirubin 0.26, AST 16, ALT 8, Alkaline Phosphatase 64, Total Protein 6.4, Albumin 3.8, Globulin 2.6, Albumin/Globulin Ratio 1.4 Physical Exam Narrative Physical Examination: General: Awake, alert, oriented x 3 and cooperative, seated upright in MS bed, no acute distress, notes some itching to the right eye and some discomfort behind the eye more so than day prior with a mild headache. Skin: Normal color, normal turgor, no icterus, no cyanosis. HEENT: AT/NC, EOMI, PERRLA, MMM., Mild injection primarily right eye today, vision intact, some mild exophthalmos. Lungs: Mildly diminished, greater bases, poor effort, no rales, ronchi or wheezing. Heart: Regular rate and rhythm; no gallop, rub audible. Abdomen: Soft, overweight, NTTP, normal BS. Extremities: No cyanosis, no clubbing, no marked distal edema noted. Neurological: Patient awake, alert, oriented as noted, cognitive function intact; pupils equally reactive to light and accommodation, cranial nerves grossly normal, moving all 4 extremities, no focal deficits, strength preserved. Psychiatric: Affect appears fatigued otherwise normal, no acute evidence of depressive or anxiety feelings. Assessment & Plan Assessment/Plan (1) Mass of eye, right: PLAN: Plan The patient is a 59 y/o F w/ PMHx: HTN, HLD, GERD, Hx Renal Cell CA who presents to the [facility] ED on 10/24/2024 with history of discomfort and pressure behind the right eye prompting ED evaluation. #1. Right orbital mass with associated right eye pain/pressure of unclear significance however concern for possible bony erosion/obstruction to the medial wall concerning for neoplastic process: Unfortunately given the fact that there is no tertiary bed availability at [facility] at this time patient has been accepted but while awaiting bed until transitioned admitted to medical surgical floor, will continue oral and IV pain medication for breakthrough pain, as noted previously does have a history of renal cell cancer thus some concerns for Von Hippel-Lindau syndrome. 10/26/2024 added as needed eyedrops. Unfortunately discussed with pharmacy at length and there is no patanol or similar regimen available for eye itching. #2. History of renal cell cancer: Status post partial nephrectomy in 2022, considered remission, unclear as noted if related with #1 with concern for possible von Hippel-Lindau syndrome. Awaiting tertiary facility transfer as noted. #3. Hypertension: Continue home regimen including lisinopril, PRN hydralazine if necessary. #4. Hyperlipidemia: Will continuation on statin therapy. #5. GERD: Will continue on PPI. #6. Overweight: Weight loss and lifestyle changes encouraged. #7. DVT prophylaxis: Lovenox. Charges/Coding Visit Charges Inpatient E&M: 68791 Subs Hosp L2
[2024-10-26 07:48] VITALS: O2SAT 93
--- NOTE | 2024-10-26 08:40 | NURSING ---
talked to domonique at [facility] transfer center. she talked with bed mgmt. Domonique stated still awaiting on discharges to occur- no bed available at this time, hoping for later this evening.
--- NOTE | 2024-10-26 08:40 | NURSING ---
talked to domonique at [facility] transfer center. she talked with bed mgmt. Domonique stated still awaiting on discharges to occur- no bed available at this time, hoping for later this evening.
[2024-10-26] MEDS: Senna Tablet 1 TABLET PO ×2 (09:17→21:21)
[2024-10-26] MEDS: Glycerin/Hypromellose/PEG400 15 ml Bottle 2 DRP EACH EYE (09:21)
[2024-10-26 09:23] VITALS: BP 107/66; PULSE 67; RESP 16; TEMP 36.6; O2SAT 98
--- NOTE | 2024-10-26 13:13 | NURSING ---
talked with Allen at [facility] transfer center. states still awaiting on beds to open up, discharge dependent.
--- NOTE | 2024-10-26 13:13 | NURSING ---
talked with Allen at [facility] transfer center. states still awaiting on beds to open up, discharge dependent.
[2024-10-26 15:17] VITALS: BP 105/70; PULSE 66; RESP 16; TEMP 36.7; O2SAT 100
--- NOTE | 2024-10-26 18:12 | NURSING ---
talked with Trupti from [facility] transfer center she states she doesn't know if patient will get a bed today states it's all discharge dependent.
--- NOTE | 2024-10-26 18:12 | NURSING ---
talked with Trupti from [facility] transfer center she states she doesn't know if patient will get a bed today states it's all discharge dependent.
[2024-10-26 21:06] VITALS: BP 111/72; PULSE 67; RESP 16; TEMP 36.8; O2SAT 94
[2024-10-26] MEDS: 0.9% Saline Lock 10 ML Syringe IV (21:20)
[2024-10-26] MEDS: MELATONIN 3 MG TABLET PO (21:21)
[2024-10-27 03:17] VITALS: BP 104/73; PULSE 64; RESP 14; TEMP 36.4; O2SAT 95
[2024-10-27 06:12] LABS: Hematocrit 38.5 % (37-47); Hemoglobin 12.5 g/dL (12.0-15.0); Immature Granulocytes Count 0.010 X10^3/uL (0.0-0.0); Mean Corp Hgb Conc 32.5 g/dL (32-36); Mean Corpuscular Volume 85.7 fL (81-99); Mean Platelet Vol. 9.5 fl (6.2-12.0); NRBC Flagged by Analyzer 0 % (0-5); Platelet Count 257 K/mm3 (150-450); RBC Distribution Width CV 13.1 % (11.6-14.6); RBC Distribution Width SD 40.7 fl (35.1-43.9); Red Blood Count 4.49 M/mm3 (4.2-5.4); White Blood Count 6.6 K/mm3 (4.4-11.0)
[2024-10-27 06:36] LABS: AST(SGOT) 16 U/L (<=31); Alanine Aminotransfer ALT/SGPT 7 U/L (<=34); Albumin, Serum 3.9 g/dL (3.5-5.0); Alkaline Phosphatase 62 U/L (35-104); Anion Gap 8 (5-15); BUN 19 mg/dL (4-19); BUN/Creat Ratio 18.7 RATIO (10-20); Calcium,Total 9.2 mg/dL (7.6-11.0); Carbon Dioxide 24.7 mmol/L (21.0-32.0); Chloride 103 mmol/L (98-108); Estimated Creatinine Clearance 62.73 ml/min (50-250); Globulin 2.6 g/dL (2.2-4.2); Glucose 84 mg/dL (70-99); Potassium 4.3 mmol/L (3.3-5.1)
--- NOTE | 2024-10-27 07:10 | PN.HOSP_ITS ---
Reason for Visit Reason for Visit: Diagnoses Other specified disorders of eye and adnexa (10/24/24) Subjective Subjective Patient with no acute events overnight per self and per nursing report. Patient has had lower blood pressures since presentation but she is eating a different cardiac diet this possible partly the etiology. Hold parameters are placed on patient moderate dose lisinopril. Currently she notes the right eye is not itching and she denies any current headache. She notes these are intermittent. Discussed again at length still awaiting tertiary facility bed with both her and her . Patient denies fevers, chills, nausea, emesis, abdominal pain, chest pain or dyspnea. Objective Data Objective Data Vital Signs: Vital Signs Temp Pulse Resp BP Pulse Ox O2 Del Method 97.6 F L 64 14 104/73 95 Room Air 10/27/24 03:17 10/27/24 03:17 10/27/24 03:17 10/27/24 03:17 10/27/24 03:10/27/24 03:17 Oxygen Delivery Method Room Air Weight: 179 lb 14.355 oz Body Mass Index (BMI) 29.0 Intake & Output: Intake and Output for Last 24 Hours 10/25/24 10/26/24 10/27/24 23:59 23:59 23:59 Intake Total 1120 / 1120 650 / 650 200 / 200 Balance 1120 / 1120 650 / 650 200 / 200 Lab / Micro Data 10/27/24 05:45 10/27/24 05:45 Labs: Laboratory Results - last 24 hr 10/27/24 05:45: WBC 6.6, RBC 4.49, Hgb 12.5, Hct 38.5, MCV 85.7, MCH 27.8, MCHC 32.5, RDW Std Deviation 40.7, RDW Coeff of Rbobi 13.1, Plt Count 257, MPV 9.5, Immature Gran % (Auto) 0.200, Neut % (Auto) 47.9, Lymph % (Auto) 39.7, [place] % (Auto) 7.3, Eos % (Auto) 4.1, Baso % (Auto) 0.8, Absolute Neuts (auto) 3.2, Absolute Lymphs (auto) 2.62, Nucleated RBC % 0, Sodium 136, Potassium 4.3, Chloride 103, Carbon Dioxide 24.7, Anion Gap 8, BUN 19, Creatinine 1.04, Estim Creat Clear Calc 62.73, Est GFR (MDRD) Non-Af 62, BUN/Creatinine Ratio 18.7, Glucose 84, Calcium 9.2, Total Bilirubin 0.25, AST 16, ALT 7, Alkaline Phosphatase 62, Total Protein 6.5, Albumin 3.9, Globulin 2.6, Albumin/Globulin Ratio 1.5 Physical Exam Narrative Physical Examination: General: Awake, alert, oriented x 3 and cooperative, seated upright in MS bed, no acute distress, no current headache. Skin: Normal color, normal turgor, no icterus, no cyanosis. HEENT: AT/NC, EOMI, PERRLA, MMM, persistent mild injection primarily right eye today, vision intact, mild right eye exophthalmos. Lungs: Mildly diminished, greater bases, poor effort, no rales, ronchi or wheezing. Heart: Regular rate and rhythm; no gallop, rub audible. Abdomen: Soft, overweight, NTTP, normal BS. Extremities: No cyanosis, no clubbing, no marked distal edema noted. Neurological: Patient awake, alert, oriented as noted, cognitive function intact; pupils equally reactive to light and accommodation, cranial nerves grossly normal, moving all 4 extremities, no focal deficits, strength preserved. Psychiatric: Affect appears normal, no acute evidence of depressive or anxiety feelings. Assessment & Plan Assessment/Plan (1) Mass of eye, right: PLAN: Plan The patient is a 59 y/o F w/ PMHx: HTN, HLD, GERD, Hx Renal Cell CA who presents to the [facility] ED on 10/24/2024 with history of discomfort and pressure behind the right eye prompting ED evaluation. #1. Right orbital mass with associated right eye pain/pressure of unclear significance however concern for possible bony erosion/obstruction to the medial wall concerning for neoplastic process: Unfortunately given the fact that there is no tertiary bed availability at [facility] at this time patient has been accepted but while awaiting bed until transitioned admitted to medical surgical floor, will continue oral and IV pain medication for breakthrough pain, as noted previously does have a history of renal cell cancer thus some concerns for Von Hippel-Lindau syndrome. 10/26/2024 added as needed eyedrops, rewetting drops only as no available patanol or similar regimen. 10/27/2024 discussed with [facility] charge master coordinator and legal secretary receptionist and unfortunately still awaiting tertiary facility bed assignment. Reviewed situation at length with patient again and her who is present. #2. History of renal cell cancer: Status post partial nephrectomy in 2022, considered remission, unclear as noted if related with #1 with concern for possible von Hippel-Lindau syndrome. Awaiting tertiary facility transfer as noted. #3. Hypertension: Continue home regimen including lisinopril, PRN hydralazine if necessary. #4. Hyperlipidemia: Will continuation on statin therapy. #5. GERD: Will continue on PPI. #6. Overweight: Weight loss and lifestyle changes encouraged. #7. DVT prophylaxis: Lovenox. Charges/Coding Visit Charges Inpatient E&M: 00894 Subs Hosp L2
--- NOTE | 2024-10-27 07:10 | PN.HOSP_ITS ---
Reason for Visit Reason for Visit: Diagnoses Other specified disorders of eye and adnexa (10/24/24) Subjective Subjective Patient with no acute events overnight per self and per nursing report. Patient has had lower blood pressures since presentation but she is eating a different cardiac diet this possible partly the etiology. Hold parameters are placed on patient moderate dose lisinopril. Currently she notes the right eye is not itching and she denies any current headache. She notes these are intermittent. Discussed again at length still awaiting tertiary facility bed with both her and her . Patient denies fevers, chills, nausea, emesis, abdominal pain, chest pain or dyspnea. Objective Data Objective Data Vital Signs: Vital Signs Temp Pulse Resp BP Pulse Ox O2 Del Method 97.6 F L 64 14 104/73 95 Room Air 10/27/24 03:17 10/27/24 03:17 10/27/24 03:17 10/27/24 03:17 10/27/24 03:10/27/24 03:17 Oxygen Delivery Method Room Air Weight: 179 lb 14.355 oz Body Mass Index (BMI) 29.0 Intake & Output: Intake and Output for Last 24 Hours 10/25/24 10/26/24 10/27/24 23:59 23:59 23:59 Intake Total 1120 / 1120 650 / 650 200 / 200 Balance 1120 / 1120 650 / 650 200 / 200 Lab / Micro Data 10/27/24 05:45 10/27/24 05:45 Labs: Laboratory Results - last 24 hr 10/27/24 05:45: WBC 6.6, RBC 4.49, Hgb 12.5, Hct 38.5, MCV 85.7, MCH 27.8, MCHC 32.5, RDW Std Deviation 40.7, RDW Coeff of Robbi 13.1, Plt Count 257, MPV 9.5, Immature Gran % (Auto) 0.200, Neut % (Auto) 47.9, Lymph % (Auto) 39.7, [place] % (Auto) 7.3, Eos % (Auto) 4.1, Baso % (Auto) 0.8, Absolute Neuts (auto) 3.2, Absolute Lymphs (auto) 2.62, Nucleated RBC % 0, Sodium 136, Potassium 4.3, Chloride 103, Carbon Dioxide 24.7, Anion Gap 8, BUN 19, Creatinine 1.04, Estim Creat Clear Calc 62.73, Est GFR (MDRD) Non-Af 62, BUN/Creatinine Ratio 18.7, Glucose 84, Calcium 9.2, Total Bilirubin 0.25, AST 16, ALT 7, Alkaline Phosphatase 62, Total Protein 6.5, Albumin 3.9, Globulin 2.6, Albumin/Globulin Ratio 1.5 Physical Exam Narrative Physical Examination: General: Awake, alert, oriented x 3 and cooperative, seated upright in MS bed, no acute distress, no current headache. Skin: Normal color, normal turgor, no icterus, no cyanosis. HEENT: AT/NC, EOMI, PERRLA, MMM, persistent mild injection primarily right eye today, vision intact, mild right eye exophthalmos. Lungs: Mildly diminished, greater bases, poor effort, no rales, ronchi or wheezing. Heart: Regular rate and rhythm; no gallop, rub audible. Abdomen: Soft, overweight, NTTP, normal BS. Extremities: No cyanosis, no clubbing, no marked distal edema noted. Neurological: Patient awake, alert, oriented as noted, cognitive function intact; pupils equally reactive to light and accommodation, cranial nerves grossly normal, moving all 4 extremities, no focal deficits, strength preserved. Psychiatric: Affect appears normal, no acute evidence of depressive or anxiety feelings. Assessment & Plan Assessment/Plan (1) Mass of eye, right: PLAN: Plan The patient is a 59 y/o F w/ PMHx: HTN, HLD, GERD, Hx Renal Cell CA who presents to the [facility] ED on 10/24/2024 with history of discomfort and pressure behind the right eye prompting ED evaluation. #1. 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 10/26/2024 added as needed eyedrops, rewetting drops only as no available patanol or similar regimen. 10/27/2024 discussed with [facility] supercharge repair supervisor and certified legal secretary specialist and unfortunately still awaiting tertiary facility bed assignment. Reviewed situation at length with patient again and her who is present. #2. History of renal cell cancer: Status post partial nephrectomy in 2022, considered remission, unclear as noted if related with #1 with concern for possible von Hippel-Lindau syndrome. Awaiting tertiary facility transfer as noted. #3. Hypertension: Continue home regimen including lisinopril, PRN hydralazine if necessary. #4. Hyperlipidemia: Will continuation on statin therapy. #5. GERD: Will continue on PPI. #6. Overweight: Weight loss and lifestyle changes encouraged. #7. DVT prophylaxis: Lovenox. Charges/Coding Visit Charges Inpatient E&M: 62798 Subs Hosp L2
--- NOTE | 2024-10-27 07:11 | PCM.DC.SUM ---
Providers Date of Admission: 10/24/24 Date of Discharge: 10/26/24 Primary Care Physician: Dr. Maciel Castaneda MD Reason For Visit: RIGHT ORBITAL MASS W/PAIN Diagnosis Discharge Diagnosis (1) Mass of eye, right: Status: Acute Code(s): H57.89 - Other specified disorders of eye and adnexa Plan: DISCHARGE DIAGNOSES: #1. Right orbital soft tissue mass with associated right eye pain/pressure of unclear significance however concern for possible bony erosion/obstruction to the medial wall concerning for neoplastic process #2. History of renal cell cancer, Status post partial nephrectomy in 2022, considered in remission #3. Hypertension #4. Hyperlipidemia #5. GERD #6. Overweight Medications at Discharge Home Medications lisinopril 20 mg tablet 20 mg PO DAILY 02/25/20 pantoprazole 40 mg tablet,delayed release 40 mg PO DAILY 02/25/20 atorvastatin 10 mg tablet 10 mg PO QHS cholesterol 10/24/24 estradiol 1 mg tablet 1 mg PO DAILY 10/24/24 Hospital Course Operations None Procedures None Summary of Care Provided Minutes Spent on Discharge: 35 Hospital Course: The patient is a 59 y/o F w/ PMHx: HTN, HLD, GERD, Hx Renal Cell CA who presented to the [facility] ED on 10/24/2024 with history of discomfort and pressure behind the right eye prompting ED evaluation. ED evaluation w/ CR orbit w/ soft tissue mass along the medial extraconal space of the right orbit with bony erosion/destruction of the medial wall of the right ethmoid sinus with concern for neoplastic process. 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 10/26/2024 added as needed eyedrops. Patient discharged to [facility] once bed availability obtained for ongoing evaluation and definitive treatment of the soft tissue mass. Weight / BMI Weight Weight: 179 lb 14.355 oz Body Mass Index (BMI) 29.0 ABG / Lab / Microbiology Data 10/27/24 05:45 10/27/24 05:45 Laboratory: Laboratory Results - last 24 hr 10/27/24 05:45: WBC 6.6, RBC 4.49, Hgb 12.5, Hct 38.5, MCV 85.7, MCH 27.8, MCHC 32.5, RDW Std Deviation 40.7, RDW Coeff of Robbi 13.1, Plt Count 257, MPV 9.5, Immature Gran % (Auto) 0.200, Neut % (Auto) 47.9, Lymph % (Auto) 39.7, [place] % (Auto) 7.3, Eos % (Auto) 4.1, Baso % (Auto) 0.8, Absolute Neuts (auto) 3.2, Absolute Lymphs (auto) 2.62, Nucleated RBC % 0, Sodium 136, Potassium 4.3, Chloride 103, Carbon Dioxide 24.7, Anion Gap 8, BUN 19, Creatinine 1.04, Estim Creat Clear Calc 62.73, Est GFR (MDRD) Non-Af 62, BUN/Creatinine Ratio 18.7, Glucose 84, Calcium 9.2, Total Bilirubin 0.25, AST 16, ALT 7, Alkaline Phosphatase 62, Total Protein 6.5, Albumin 3.9, Globulin 2.6, Albumin/Globulin Ratio 1.5 Meaningful Use Info Meaningful Use Meaningful Use Diagnoses (Choose all that apply): None applicable Discharge Plan Admission Admit Date/Time: 10/24/24 21:30 Attending Provider: Susannah Sullivan Primary Care Provider: Maciel Castaneda Consulting Providers: Sohan Jones Discharge Orders/Prescriptions Prescriptions: No Action lisinopril 20 MG tablet 20 mg PO DAILY pantoprazole 40 MG tablet 40 mg PO DAILY atorvastatin 10 mg tablet 10 mg PO QHS estradiol 1 mg tablet 1 mg PO DAILY Referrals / Follow Up: Maciel Castaneda MD [Primary Care Provider] - Disposition Discharge Orders: Discharge Patient (Routine); Ordered 10/26/24 Ordered By: Dr. Susannah Sullivan
[2024-10-27 07:45] VITALS: O2SAT 94
[2024-10-27 09:00] VITALS: BP 100/65; PULSE 72; RESP 18; TEMP 36.6; O2SAT 98
--- NOTE | 2024-10-27 09:16 | NURSING ---
call placed to [facility] still no bed available at this time.
--- NOTE | 2024-10-27 09:16 | NURSING ---
call placed to [facility] still no bed available at this time.
[2024-10-27] MEDS: Senna Tablet 1 TABLET PO ×2 (10:29→21:20)
--- NOTE | 2024-10-27 10:53 | NURSING ---
talked with Janiya at [facility] transfer center. states no bed available at this time. states discharge dependent so she is unsure when she will get a bed.
--- NOTE | 2024-10-27 10:53 | NURSING ---
talked with Janiya at [facility] transfer center. states no bed available at this time. states discharge dependent so she is unsure when she will get a bed.
[2024-10-27 15:00] VITALS: BP 95/70; PULSE 70; RESP 18; TEMP 36.6; O2SAT 98
--- NOTE | 2024-10-27 17:09 | NURSING ---
talked with [facility] at [facility]. aware still no bed available at this time.
--- NOTE | 2024-10-27 17:09 | NURSING ---
talked with [facility] at [facility]. aware still no bed available at this time.
[2024-10-27 21:18] VITALS: BP 112/75; PULSE 74; RESP 18; TEMP 36.7; O2SAT 97
[2024-10-27] MEDS: MELATONIN 3 MG TABLET PO (21:20)
[2024-10-27] MEDS: 0.9% Saline Lock 10 ML Syringe IV (21:22)
[2024-10-28 03:15] VITALS: BP 101/59; PULSE 60; RESP 14; TEMP 36.4; O2SAT 93
[2024-10-28 06:16] LABS: AST(SGOT) 15 U/L (<=31); Alanine Aminotransfer ALT/SGPT 9 U/L (<=34); Albumin, Serum 3.9 g/dL (3.5-5.0); Alkaline Phosphatase 64 U/L (35-104); Anion Gap 10 (5-15); BUN 20 mg/dL (4-19); BUN/Creat Ratio 20.1 RATIO (10-20); Calcium,Total 9.0 mg/dL (7.6-11.0); Carbon Dioxide 24.2 mmol/L (21.0-32.0); Chloride 104 mmol/L (98-108); Estimated Creatinine Clearance 66.57 ml/min (50-250); Globulin 2.5 g/dL (2.2-4.2); Glucose 87 mg/dL (70-99); Potassium 4.2 mmol/L (3.3-5.1)
[2024-10-28 08:09] VITALS: BP 117/76; PULSE 67; RESP 16; TEMP 36.6; O2SAT 99
--- NOTE | 2024-10-28 08:48 | PCM.PN.HOSP ---
Reason for Visit Chief Complaint: Right eye pain Subjective Subjective Patient is a 59-year-old lady who presented to the emergency department with intractable headache found to have a right orbital mass. Arrangement was made for patient to be transferred to [facility]. Patient had to be admitted pending bed availability Objective Data Objective Data Vital Signs: Vital Signs Temp Pulse Resp BP Pulse Ox O2 Del Method 98 F 67 16 117/76 99 Room Air 10/28/24 08:09 10/28/24 08:09 10/28/24 08:09 10/28/24 08:09 10/28/24 08:09 10/28/24 08:09 Oxygen Delivery Method Room Air Weight: 81.6 kg Body Mass Index (BMI) 29.0 Intake & Output: Intake and Output for Last 24 Hours 10/26/24 10/27/24 10/28/24 23:59 23:59 23:59 Intake Total 650 / 650 1000 / 1000 Balance 650 / 650 1000 / 1000 Lab / Micro Data 10/27/24 05:45 10/28/24 05:45 Labs: Laboratory Results - last 24 hr 10/28/24 05:45: Sodium 138, Potassium 4.2, Chloride 104, Carbon Dioxide 24.2, Anion Gap 10, BUN 20 H, Creatinine 0.98, Estim Creat Clear Calc 66.57, Est GFR (MDRD) Non-Af 67, BUN/Creatinine Ratio 20.1 H, Glucose 87, Calcium 9.0, Total Bilirubin 0.25, AST 15, ALT 9, Alkaline Phosphatase 64, Total Protein 6.4, Albumin 3.9, Globulin 2.5, Albumin/Globulin Ratio 1.5 Physical Exam Narrative GENERAL: cooperative HEENT: Atraumatic; normocephalic EYES; Anicteric, proptosis involving the right NECK; supple, normal thyroid, RESPIRATORY: Diminished to auscultation CARDIOVASCULAR: Regular S1 S2, GI: soft, normoactive bowel sounds, : No Renal angle tenderness; EXTREMITIES: No edema, no clubbing, MUSCULOSKELETAL: no muscle wasting NEURO: Awake; no lateralizing signs. SKIN: No Rash PSYCH; Flat affect Assessment & Plan Assessment/Plan (1) Mass of eye, right: PLAN: Plan Patient is a 59-year-old lady who presented to the emergency department with intractable headache found to have a right orbital mass. Arrangement was made for patient to be transferred to [facility]. Patient had to be admitted pending bed availability Right eye orbital mass Imaging studies did the most soft tissue mass along the medial extraconal space of the right orbit with bony erosion/destruction of the medial wall of the right ethmoid sinus. Arrangements were made for patient to be transferred to [facility] pending bed availability for evaluation of possible neoplastic lesion 2. History of renal cell carcinoma ? Status post partial nephrectomy in 2022 has since remained in remission 3. Hypertension ? Blood pressure controlled, home medications continued with dose adjustment as needed 4. Dyslipidemia ?Patient is on statin therapy, continued at home dose 5. GERD ? Patient is on 6. DVT prophylaxis: Lovenox. Time spent in the patient's overall evaluation,decision-making process, review of diagnostic data, adjustment of management, discussion with other providers, nursing nursing and ancillary staff involved in patient's care documentation, 36 Minutes Charges/Coding Visit Charges Inpatient E&M: 72052 Subs Hosp L2
[2024-10-28 09:58] LABS: Hematocrit 37.7 % (37-47); Hemoglobin 12.4 g/dL (12.0-15.0); Mean Corp Hgb Conc 32.9 g/dL (32-36); Mean Corpuscular Volume 87.1 fL (81-99); Mean Platelet Vol. 10.1 fl (6.2-12.0); Platelet Count 260 K/mm3 (150-450); RBC Distribution Width CV 13.2 % (11.6-14.6); RBC Distribution Width SD 42.0 fl (35.1-43.9); Red Blood Count 4.33 M/mm3 (4.2-5.4); White Blood Count 6.7 K/mm3 (4.4-11.0)
[2024-10-28 09:59] LABS: Immature Granulocytes Count 0.010 X10^3/uL (0.0-0.0)
[2024-10-28] MEDS: Senna Tablet 1 TABLET PO ×2 (11:36→21:17)
[2024-10-28 17:02] VITALS: BP 99/64; PULSE 64; RESP 16; TEMP 36.6; O2SAT 98
[2024-10-28 20:19] VITALS: BP 103/67; PULSE 58; RESP 18; TEMP 36.6; O2SAT 98
[2024-10-28] MEDS: MELATONIN 3 MG TABLET PO (21:17)
[2024-10-29 04:27] VITALS: BP 108/58; PULSE 72; RESP 18; TEMP 36.4; O2SAT 100
[2024-10-29 06:31] LABS: Hematocrit 37.6 % (37-47); Hemoglobin 12.0 g/dL (12.0-15.0); Immature Granulocytes Count 0.010 X10^3/uL (0.0-0.0); Mean Corp Hgb Conc 31.9 g/dL (32-36); Mean Corpuscular Volume 87.2 fL (81-99); Mean Platelet Vol. 9.9 fl (6.2-12.0); NRBC Flagged by Analyzer 0 % (0-5); Platelet Count 254 K/mm3 (150-450); RBC Distribution Width CV 13.1 % (11.6-14.6); RBC Distribution Width SD 41.6 fl (35.1-43.9); Red Blood Count 4.31 M/mm3 (4.2-5.4); White Blood Count 6.9 K/mm3 (4.4-11.0)
[2024-10-29 06:57] LABS: Anion Gap 9 (5-15); BUN 18 mg/dL (4-19); BUN/Creat Ratio 17.4 RATIO (10-20); Calcium,Total 9.1 mg/dL (7.6-11.0); Carbon Dioxide 26.0 mmol/L (21.0-32.0); Chloride 103 mmol/L (98-108); Estimated Creatinine Clearance 62.13 ml/min (50-250); Glucose 106 mg/dL (70-99); Magnesium 1.8 mg/dL (1.5-2.2); Potassium 4.9 mmol/L (3.3-5.1)
--- NOTE | 2024-10-29 07:01 | PCM.PN.HOSP ---
Reason for Visit Chief Complaint: Right eye pain Subjective Subjective Patient seen no change in clinical condition waiting for acceptance prior [facility] Objective Data Objective Data Vital Signs: Vital Signs Temp Pulse Resp BP Pulse Ox O2 Del Method 97.6 F L 72 18 108/58 L 100 Room Air 10/29/24 04:27 10/29/24 04:27 10/29/24 04:27 10/29/24 04:27 10/29/24 04:27 10/29/24 04:27 Oxygen Delivery Method Room Air Weight: 81.6 kg Body Mass Index (BMI) 29.0 Intake & Output: Intake and Output for Last 24 Hours 10/27/24 10/28/24 10/29/24 23:59 23:59 23:59 Intake Total 1000 / 1000 450 / 450 Balance 1000 / 1000 450 / 450 Lab / Micro Data 10/29/24 05:48 10/29/24 05:48 Labs: Laboratory Results - last 24 hr 10/28/24 05:45: WBC 6.7, RBC 4.33, Hgb 12.4, Hct 37.7, MCV 87.1, MCH 28.6, MCHC 32.9, RDW Std Deviation 42.0, RDW Coeff of Robbi 13.2, Plt Count 260, MPV 10.1, Immature Gran % (Auto) 0.100, Neut % (Auto) 47.6, Lymph % (Auto) 40.7, [place] % (Auto) 6.9, Eos % (Auto) 4.0, Baso % (Auto) 0.7, Absolute Neuts (auto) 3.2, Absolute Lymphs (auto) 2.72 10/29/24 05:48: WBC 6.9, RBC 4.31, Hgb 12.0, Hct 37.6, MCV 87.2, MCH 27.8, MCHC 31.9 L, RDW Std Deviation 41.6, RDW Coeff of Robbi 13.1, Plt Count 254, MPV 9.9, Immature Gran % (Auto) 0.100, Neut % (Auto) 49.5, Lymph % (Auto) 36.6, [place] % (Auto) 8.2, Eos % (Auto) 4.7, Baso % (Auto) 0.9, Absolute Neuts (auto) 3.4, Absolute Lymphs (auto) 2.51, Nucleated RBC % 0, Sodium 138, Potassium 4.9, Chloride 103, Carbon Dioxide 26.0, Anion Gap 9, BUN 18, Creatinine 1.05, Estim Creat Clear Calc 62.13, Est GFR (MDRD) Non-Af 61, BUN/Creatinine Ratio 17.4, Glucose 106 H, Calcium 9.1, Phosphorus 3.2, Magnesium 1.8 Physical Exam Narrative GENERAL: cooperative HEENT: Atraumatic; normocephalic EYES; Anicteric, proptosis involving the right NECK; supple, normal thyroid, RESPIRATORY: Diminished to auscultation CARDIOVASCULAR: Regular S1 S2, GI: soft, normoactive bowel sounds, : No Renal angle tenderness; EXTREMITIES: No edema, no clubbing, MUSCULOSKELETAL: no muscle wasting NEURO: Awake; no lateralizing signs. SKIN: No Rash PSYCH; Flat affect Assessment & Plan Assessment/Plan (1) Mass of eye, right: PLAN: Plan Patient is a 59-year-old lady who presented to the emergency department with intractable headache found to have a right orbital mass. Arrangement was made for [facility] to be [facility]. Patient had to be admitted pending bed availability 1. Right eye orbital mass Imaging studies did the most soft tissue mass along the medial extraconal space of the right orbit with bony erosion/destruction of the medial wall of the right ethmoid sinus. Arrangements were made for patient to be transferred to [facility] pending bed availability for evaluation of possible neoplastic lesion ? 10/29/2024; transferred to [facility] still pain 2. History of renal cell carcinoma ? Status post partial nephrectomy in 2022 has since remained in remission 3. Hypertension ? Blood pressure controlled, home medications continued with dose adjustment as needed 4. Dyslipidemia ?Patient is on statin therapy, continued at home dose 5. GERD ? Patient is on 6. DVT prophylaxis: Lovenox. Charges/Coding Visit Charges Inpatient E&M: 09368 Subs Hosp L1
--- NOTE | 2024-10-29 07:01 | PCM.PN.HOSP ---
Reason for Visit Chief Complaint: Right eye pain Subjective Subjective Patient seen no change in clinical condition waiting for acceptance prior to transfer to [facility] Objective Data Objective Data Vital Signs: Vital Signs Temp Pulse Resp BP Pulse Ox O2 Del Method 97.6 F L 72 18 108/58 L 100 Room Air 10/29/24 04:27 10/29/24 04:27 10/29/24 04:27 10/29/24 04:27 10/29/24 04:27 10/29/24 04:27 Oxygen Delivery Method Room Air Weight: 81.6 kg Body Mass Index (BMI) 29.0 Intake & Output: Intake and Output for Last 24 Hours 10/27/24 10/28/24 10/29/24 23:59 23:59 23:59 Intake Total 1000 / 1000 450 / 450 Balance 1000 / 1000 450 / 450 Lab / Micro Data 10/29/24 05:48 10/29/24 05:48 Labs: Laboratory Results - last 24 hr 10/28/24 05:45: WBC 6.7, RBC 4.33, Hgb 12.4, Hct 37.7, MCV 87.1, MCH 28.6, MCHC 32.9, RDW Std Deviation 42.0, RDW Coeff of Robbi 13.2, Plt Count 260, MPV 10.1, Immature Gran % (Auto) 0.100, Neut % (Auto) 47.6, Lymph % (Auto) 40.7, [place] % (Auto) 6.9, Eos % (Auto) 4.0, Baso % (Auto) 0.7, Absolute Neuts (auto) 3.2, Absolute Lymphs (auto) 2.72 10/29/24 05:48: WBC 6.9, RBC 4.31, Hgb 12.0, Hct 37.6, MCV 87.2, MCH 27.8, MCHC 31.9 L, RDW Std Deviation 41.6, RDW Coeff of Robbi 13.1, Plt Count 254, MPV 9.9, Immature Gran % (Auto) 0.100, Neut % (Auto) 49.5, Lymph % (Auto) 36.6, [place] % (Auto) 8.2, Eos % (Auto) 4.7, Baso % (Auto) 0.9, Absolute Neuts (auto) 3.4, Absolute Lymphs (auto) 2.51, Nucleated RBC % 0, Sodium 138, Potassium 4.9, Chloride 103, Carbon Dioxide 26.0, Anion Gap 9, BUN 18, Creatinine 1.05, Estim Creat Clear Calc 62.13, Est GFR (MDRD) Non-Af 61, BUN/Creatinine Ratio 17.4, Glucose 106 H, Calcium 9.1, Phosphorus 3.2, Magnesium 1.8 Physical Exam Narrative GENERAL: cooperative HEENT: Atraumatic; normocephalic EYES; Anicteric, proptosis involving the right NECK; supple, normal thyroid, RESPIRATORY: Diminished to auscultation CARDIOVASCULAR: Regular S1 S2, GI: soft, normoactive bowel sounds, : No Renal angle tenderness; EXTREMITIES: No edema, no clubbing, MUSCULOSKELETAL: no muscle wasting NEURO: Awake; no lateralizing signs. SKIN: No Rash PSYCH; Flat affect Assessment & Plan Assessment/Plan (1) Mass of eye, right: PLAN: Plan Patient is a 59-year-old lady who presented to the emergency department with intractable headache found to have a right orbital mass. Arrangement was made for patient to be transferred to [facility]. Patient had to be admitted pending bed availability 1. Right eye orbital mass Imaging studies did the most soft tissue mass along the medial extraconal space of the right orbit with bony erosion/destruction of the medial wall of the right ethmoid sinus. Arrangements were made for patient to be transferred to [facility] pending bed availability for evaluation of possible neoplastic lesion ? 10/29/2024; transferred to [facility] still pain 2. History of renal cell carcinoma ? Status post partial nephrectomy in 2022 has since remained in remission 3. Hypertension ? Blood pressure controlled, home medications continued with dose adjustment as needed 4. Dyslipidemia ?Patient is on statin therapy, continued at home dose 5. GERD ? Patient is on 6. DVT prophylaxis: Lovenox. Charges/Coding Visit Charges Inpatient E&M: 28236 Subs Hosp L1
[2024-10-29 08:17] VITALS: BP 91/52; PULSE 68; RESP 16; TEMP 36.8; O2SAT 99
[2024-10-29] MEDS: Senna Tablet 1 TABLET PO ×2 (10:18→21:37)
--- NOTE | 2024-10-29 15:19 | CASEMGMT ---
Tertiary Insurance review for hospitals In-network with?[employer] insurance if transfer is recommended is as follows: [facility], [facility], [place], [facility], [facility], [facility], , [place], [facility], [facility], and [facility]. Sierra Orourke, Discharge Planning Asst.
--- NOTE | 2024-10-29 15:19 | CASEMGMT ---
Tertiary Insurance review for hospitals In-network with?[employer] insurance if transfer is recommended is as follows: [facility], [facility], [place], [facility], [facility], [facility], , [place], [facility], [facility], and [place]. Sierra Orourke, Discharge Planning Asst.
[2024-10-29 15:23] VITALS: BP 104/68; PULSE 65; RESP 15; TEMP 36.9; O2SAT 99
--- NOTE | 2024-10-29 15:32 | NURSING ---
[facility] CALLED PER [employer] MANAGEMENT [employer] FOR UPDATE ON BED AVAILABILITY - THEN THIS RN TALKED WITH [facility] BED COORDINATOR- STILL NO BED - PT INFORMED
--- NOTE | 2024-10-29 15:32 | NURSING ---
[facility] CALLED PER MANAGER TRADING FOR UPDATE ON BED AVAILABILITY - THEN THIS RN TALKED WITH [facility] BED COORDINATOR- STILL NO BED - PT INFORMED
[2024-10-29 21:30] VITALS: BP 106/74; PULSE 59; RESP 15; TEMP 36.7; O2SAT 100
[2024-10-29] MEDS: MELATONIN 3 MG TABLET PO (21:37)
[2024-10-30 02:20] VITALS: BP 108/71; PULSE 72; RESP 15; TEMP 36.6; O2SAT 97
[2024-10-30] MEDS: 0.9% Saline Lock 10 ML Syringe IV ×2 (02:21→21:52)
[2024-10-30 04:31] LABS: Hematocrit 36.3 % (37-47); Hemoglobin 11.8 g/dL (12.0-15.0); Immature Granulocytes Count 0.020 X10^3/uL (0.0-0.0); Mean Corp Hgb Conc 32.5 g/dL (32-36); Mean Corpuscular Volume 85.6 fL (81-99); Mean Platelet Vol. 9.7 fl (6.2-12.0); NRBC Flagged by Analyzer 0 % (0-5); Platelet Count 255 K/mm3 (150-450); RBC Distribution Width CV 13.1 % (11.6-14.6); RBC Distribution Width SD 41.1 fl (35.1-43.9); Red Blood Count 4.24 M/mm3 (4.2-5.4); White Blood Count 7.6 K/mm3 (4.4-11.0)
[2024-10-30 04:59] LABS: Anion Gap 9 (5-15); BUN 21 mg/dL (4-19); BUN/Creat Ratio 18.6 RATIO (10-20); Calcium,Total 8.8 mg/dL (7.6-11.0); Carbon Dioxide 25.6 mmol/L (21.0-32.0); Chloride 102 mmol/L (98-108); Estimated Creatinine Clearance 59.30 ml/min (50-250); Glucose 83 mg/dL (70-99); Potassium 4.4 mmol/L (3.3-5.1)
[2024-10-30 07:57] VITALS: BP 118/74; PULSE 65; RESP 18; TEMP 36.6; O2SAT 97
[2024-10-30] MEDS: Senna Tablet 1 TABLET PO ×2 (07:59→21:56)
--- NOTE | 2024-10-30 08:16 | NURSING ---
talked to allen at [facility] transfer center. verbalized pt's frustration w/ increased pain and been waiting on bed x8 days as pt stating she would rather be discharged and drive to [facility] ER as verbalized w/ Dr. Berkowitz. Allen stated no bed at this time, awaiting discharge but would escalate concerns to bed management.
--- NOTE | 2024-10-30 08:17 | PCM.PN.HOSP ---
Reason for Visit Chief Complaint: Right eye pain Subjective Subjective Patient is still waiting for a bed Objective Data Objective Data Vital Signs: Vital Signs Temp Pulse Resp BP Pulse Ox O2 Del Method 97.8 F 65 18 118/74 97 Room Air 10/30/24 07:57 10/30/24 07:57 10/30/24 07:57 10/30/24 07:57 10/30/24 07:57 10/30/24 07:57 Oxygen Delivery Method Room Air Weight: 81.6 kg Body Mass Index (BMI) 29.0 Intake & Output: Intake and Output for Last 24 Hours 10/28/24 10/29/24 10/30/24 23:59 23:59 23:59 Intake Total 450 / 450 1400 / 1700 600 / 600 Balance 450 / 450 1400 / 1700 600 / 600 Lab / Micro Data 10/30/24 04:05 10/30/24 04:05 Labs: Laboratory Results - last 24 hr 10/30/24 04:05: WBC 7.6, RBC 4.24, Hgb 11.8 L, Hct 36.3 L, MCV 85.6, MCH 27.8, MCHC 32.5, RDW Std Deviation 41.1, RDW Coeff of Robbi 13.1, Plt Count 255, MPV 9.7, Immature Gran % (Auto) 0.300, Neut % (Auto) 45.6 L, Lymph % (Auto) 39.9, [place] % (Auto) 8.3, Eos % (Auto) 5.1 H, Baso % (Auto) 0.8, Absolute Neuts (auto) 3.5, Absolute Lymphs (auto) 3.04, Nucleated RBC % 0, Sodium 137, Potassium 4.4, Chloride 102, Carbon Dioxide 25.6, Anion Gap 9, BUN 21 H, Creatinine 1.10, Estim Creat Clear Calc 59.30, Est GFR (MDRD) Non-Af 58 L, BUN/Creatinine Ratio 18.6, Glucose 83, Calcium 8.8 Physical Exam Narrative GENERAL: cooperative HEENT: Atraumatic; normocephalic EYES; Anicteric, proptosis involving the right NECK; supple, normal thyroid, RESPIRATORY: Diminished to auscultation CARDIOVASCULAR: Regular S1 S2, GI: soft, normoactive bowel sounds, : No Renal angle tenderness; EXTREMITIES: No edema, no clubbing, MUSCULOSKELETAL: no muscle wasting NEURO: Awake; no lateralizing signs. SKIN: No Rash PSYCH; Flat affect Assessment & Plan Assessment/Plan (1) Mass of eye, right: PLAN: Plan Patient is a 59-year-old lady who presented to the emergency department with intractable headache found to have a right orbital mass. Arrangement was made for patient to be transferred to [facility]. Patient had to be admitted pending bed availability 1. Right eye orbital mass Imaging studies did the most soft tissue mass along the medial extraconal space of the right orbit with bony erosion/destruction of the medial wall of the right ethmoid sinus. Arrangements were made for patient to be transferred to [facility] pending bed availability for evaluation of possible neoplastic lesion ? 10/29/2024; transferred to [facility] still pain ? 10/30/2024; still waiting for a bed to be transferred to [facility] 2. History of renal cell carcinoma ? Status post partial nephrectomy in 2022 has since remained in remission 3. Hypertension ? Blood pressure controlled, home medications continued with dose adjustment as needed 4. Dyslipidemia ?Patient is on statin therapy, continued at home dose 5. GERD ? Patient is on 6. DVT prophylaxis: Lovenox. Charges/Coding Visit Charges Inpatient E&M: 91267 Subs Hosp L1
--- NOTE | 2024-10-30 08:17 | PCM.PN.HOSP ---
Reason for Visit Chief Complaint: Right eye pain Subjective Subjective Patient is still waiting for a bed Objective Data Objective Data Vital Signs: Vital Signs Temp Pulse Resp BP Pulse Ox O2 Del Method 97.8 F 65 18 118/74 97 Room Air 10/30/24 07:57 10/30/24 07:57 10/30/24 07:57 10/30/24 07:57 10/30/24 07:57 10/30/24 07:57 Oxygen Delivery Method Room Air Weight: 81.6 kg Body Mass Index (BMI) 29.0 Intake & Output: Intake and Output for Last 24 Hours 10/28/24 10/29/24 10/30/24 23:59 23:59 23:59 Intake Total 450 / 450 1400 / 1700 600 / 600 Balance 450 / 450 1400 / 1700 600 / 600 Lab / Micro Data 10/30/24 04:05 10/30/24 04:05 Labs: Laboratory Results - last 24 hr 10/30/24 04:05: WBC 7.6, RBC 4.24, Hgb 11.8 L, Hct 36.3 L, MCV 85.6, MCH 27.8, MCHC 32.5, RDW Std Deviation 41.1, RDW Coeff of Robbi 13.1, Plt Count 255, MPV 9.7, Immature Gran % (Auto) 0.300, Neut % (Auto) 45.6 L, Lymph % (Auto) 39.9, [place] % (Auto) 8.3, Eos % (Auto) 5.1 H, Baso % (Auto) 0.8, Absolute Neuts (auto) 3.5, Absolute Lymphs (auto) 3.04, Nucleated RBC % 0, Sodium 137, Potassium 4.4, Chloride 102, Carbon Dioxide 25.6, Anion Gap 9, BUN 21 H, Creatinine 1.10, Estim Creat Clear Calc 59.30, Est GFR (MDRD) Non-Af 58 L, BUN/Creatinine Ratio 18.6, Glucose 83, Calcium 8.8 Physical Exam Narrative GENERAL: cooperative HEENT: Atraumatic; normocephalic EYES; Anicteric, proptosis involving the right NECK; supple, normal thyroid, RESPIRATORY: Diminished to auscultation CARDIOVASCULAR: Regular S1 S2, GI: soft, normoactive bowel sounds, : No Renal angle tenderness; EXTREMITIES: No edema, no clubbing, MUSCULOSKELETAL: no muscle wasting NEURO: Awake; no lateralizing signs. SKIN: No Rash PSYCH; Flat affect Assessment & Plan Assessment/Plan (1) Mass of eye, right: PLAN: Plan Patient is a 59-year-old lady who presented to the emergency department with intractable headache found to have a right orbital mass. Arrangement was made for patient to be transferred to [facility]. Patient had to be admitted pending bed availability 1. Right eye orbital mass Imaging studies did the most soft tissue mass along the medial extraconal space of the right orbit with bony erosion/destruction of the medial wall of the right ethmoid sinus. Arrangements were made for patient to be transferred to [facility] pending bed availability for evaluation of possible neoplastic lesion ? 10/29/2024; transferred to [facility] still pain ? 10/30/2024; still waiting for a bed to be transferred to [facility] 2. History of renal cell carcinoma ? Status post partial nephrectomy in 2022 has since remained in remission 3. Hypertension ? Blood pressure controlled, home medications continued with dose adjustment as needed 4. Dyslipidemia ?Patient is on statin therapy, continued at home dose 5. GERD ? Patient is on 6. DVT prophylaxis: Lovenox. Charges/Coding Visit Charges Inpatient E&M: 97149 Subs Hosp L1
--- NOTE | 2024-10-30 12:53 | NURSING ---
talked with [facility] transfer center whom talked with bed management. states will forward the concerns again to bed management but states it doesn't look good for today as waiting on discharges.
--- NOTE | 2024-10-30 13:22 | NURSING ---
as requested confirmed with [facility] transfer center that pt can not accept patient at their ER while waiting for a bed. Magalis at [facility] transfer center states that would be an EMTALA violation- Dr. Berkowitz informed.
--- NOTE | 2024-10-30 13:22 | NURSING ---
as requested confirmed with [facility] transfer center that pt can not accept patient at their ER while waiting for a bed. Magalis at [facility] transfer center states that would be an EMTALA violation- Dr. Berkowitz informed.
[2024-10-30 14:32] VITALS: BP 101/67; PULSE 65; RESP 16; TEMP 36.5; O2SAT 97
[2024-10-30 21:48] VITALS: BP 105/69; PULSE 69; RESP 17; TEMP 36.4; O2SAT 98
[2024-10-30] MEDS: MELATONIN 3 MG TABLET PO (21:57)
[2024-10-31 04:23] VITALS: BP 95/61; PULSE 67; RESP 16; TEMP 36.3; O2SAT 97
[2024-10-31 06:02] LABS: Hematocrit 35.4 % (37-47); Hemoglobin 11.8 g/dL (12.0-15.0); Immature Granulocytes Count 0.010 X10^3/uL (0.0-0.0); Mean Corp Hgb Conc 33.3 g/dL (32-36); Mean Corpuscular Volume 84.7 fL (81-99); Mean Platelet Vol. 9.6 fl (6.2-12.0); NRBC Flagged by Analyzer 0 % (0-5); Platelet Count 256 K/mm3 (150-450); RBC Distribution Width CV 13.1 % (11.6-14.6); RBC Distribution Width SD 40.1 fl (35.1-43.9); Red Blood Count 4.18 M/mm3 (4.2-5.4); White Blood Count 7.8 K/mm3 (4.4-11.0)
[2024-10-31 06:30] LABS: Anion Gap 9 (5-15); BUN 18 mg/dL (4-19); BUN/Creat Ratio 18.5 RATIO (10-20); Calcium,Total 8.6 mg/dL (7.6-11.0); Carbon Dioxide 23.7 mmol/L (21.0-32.0); Chloride 104 mmol/L (98-108); Estimated Creatinine Clearance 65.89 ml/min (50-250); Glucose 86 mg/dL (70-99); Potassium 4.4 mmol/L (3.3-5.1)
--- NOTE | 2024-10-31 07:44 | PN.HOSP_ITS ---
Reason for Visit Chief Complaint: Right eye pain Subjective Subjective Patient seen no change in clinical condition still waiting for bed prior to transfer to intermediate facility Objective Data Objective Data Vital Signs: Vital Signs Temp Pulse Resp BP Pulse Ox O2 Del Method 97.4 F L 67 16 95/61 97 Room Air 10/31/24 04:23 10/31/24 04:23 10/31/24 04:23 10/31/24 04:23 10/31/24 04:23 10/31/24 04:23 Oxygen Delivery Method Room Air Weight: 81.6 kg Body Mass Index (BMI) 29.0 Intake & Output: Intake and Output for Last 24 Hours 10/29/24 10/30/24 10/31/24 23:59 23:59 23:59 Intake Total 1400 / 1700 1560 / 1560 300 / 300 Balance 1400 / 1700 1560 / 1560 300 / 300 Lab / Micro Data 10/31/24 05:44 10/31/24 05:44 Labs: Laboratory Results - last 24 hr 10/31/24 05:44: WBC 7.8, RBC 4.18 L, Hgb 11.8 L, Hct 35.4 L, MCV 84.7, MCH 28.2, MCHC 33.3, RDW Std Deviation 40.1, RDW Coeff of Robbi 13.1, Plt Count 256, MPV 9.6, Immature Gran % (Auto) 0.100, Neut % (Auto) 53.3, Lymph % (Auto) 34.6, [place] % (Auto) 7.0, Eos % (Auto) 4.5, Baso % (Auto) 0.5, Absolute Neuts (auto) 4.2, Absolute Lymphs (auto) 2.71, Nucleated RBC % 0, Sodium 137, Potassium 4.4, Chloride 104, Carbon Dioxide 23.7, Anion Gap 9, BUN 18, Creatinine 0.99, Estim Creat Clear Calc 65.89, Est GFR (MDRD) Non-Af 65, BUN/Creatinine Ratio 18.5, Glucose 86, Calcium 8.6 Physical Exam Narrative GENERAL: cooperative HEENT: Atraumatic; normocephalic EYES; Anicteric, proptosis involving the right NECK; supple, normal thyroid, RESPIRATORY: Diminished to auscultation CARDIOVASCULAR: Regular S1 S2, GI: soft, normoactive bowel sounds, : No Renal angle tenderness; EXTREMITIES: No edema, no clubbing, MUSCULOSKELETAL: no muscle wasting NEURO: Awake; no lateralizing signs. SKIN: No Rash PSYCH; Flat affect Assessment & Plan Assessment/Plan (1) Mass of eye, right: PLAN: Plan Patient is a 59-year-old lady who presented to the emergency department with intractable headache found to have a right orbital mass. Arrangement was made for patient to be transferred to [facility]. Patient had to be admitted pending bed availability 1. Right eye orbital mass Imaging studies did the most soft tissue mass along the medial extraconal space of the right orbit with bony erosion/destruction of the medial wall of the right ethmoid sinus. Arrangements were made for patient to be transferred to [facility] pending bed availability for evaluation of possible neoplastic lesion ? 10/29/2024; transferred to [facility] still pain ? 10/30/2024; still waiting for a bed to be transferred to [facility] ? 10/31/2024. Call has been placed to [facility] requesting updates regarding patient transfer still no bed availability, explained to patient. 2. History of renal cell carcinoma ? Status post partial nephrectomy in 2022 has since remained in remission 3. Hypertension ? Blood pressure controlled, home medications continued with dose adjustment as needed 4. Dyslipidemia ?Patient is on statin therapy, continued at home dose 5. GERD ? Patient is on 6. DVT prophylaxis: Lovenox. Charges/Coding Visit Charges Inpatient E&M: 04366 Subs Hosp L1 Date medically ready for discharge: 10/24/24 Reason for DC delay: Transfer delay to tertiary center
--- NOTE | 2024-10-31 07:44 | PN.HOSP_ITS ---
Reason for Visit Chief Complaint: Right eye pain Subjective Subjective Patient seen no change in clinical condition still waiting for bed prior to transfer to long term facility Objective Data Objective Data Vital Signs: Vital Signs Temp Pulse Resp BP Pulse Ox O2 Del Method 97.4 F L 67 16 95/61 97 Room Air 10/31/24 04:23 10/31/24 04:23 10/31/24 04:23 10/31/24 04:23 10/31/24 04:23 10/31/24 04:23 Oxygen Delivery Method Room Air Weight: 81.6 kg Body Mass Index (BMI) 29.0 Intake & Output: Intake and Output for Last 24 Hours 10/29/24 10/30/24 10/31/24 23:59 23:59 23:59 Intake Total 1400 / 1700 1560 / 1560 300 / 300 Balance 1400 / 1700 1560 / 1560 300 / 300 Lab / Micro Data 10/31/24 05:44 10/31/24 05:44 Labs: Laboratory Results - last 24 hr 10/31/24 05:44: WBC 7.8, RBC 4.18 L, Hgb 11.8 L, Hct 35.4 L, MCV 84.7, MCH 28.2, MCHC 33.3, RDW Std Deviation 40.1, RDW Coeff of Robbi 13.1, Plt Count 256, MPV 9.6, Immature Gran % (Auto) 0.100, Neut % (Auto) 53.3, Lymph % (Auto) 34.6, [place] % (Auto) 7.0, Eos % (Auto) 4.5, Baso % (Auto) 0.5, Absolute Neuts (auto) 4.2, Absolute Lymphs (auto) 2.71, Nucleated RBC % 0, Sodium 137, Potassium 4.4, Chloride 104, Carbon Dioxide 23.7, Anion Gap 9, BUN 18, Creatinine 0.99, Estim Creat Clear Calc 65.89, Est GFR (MDRD) Non-Af 65, BUN/Creatinine Ratio 18.5, Glucose 86, Calcium 8.6 Physical Exam Narrative GENERAL: cooperative HEENT: Atraumatic; normocephalic EYES; Anicteric, proptosis involving the right NECK; supple, normal thyroid, RESPIRATORY: Diminished to auscultation CARDIOVASCULAR: Regular S1 S2, GI: soft, normoactive bowel sounds, : No Renal angle tenderness; EXTREMITIES: No edema, no clubbing, MUSCULOSKELETAL: no muscle wasting NEURO: Awake; no lateralizing signs. SKIN: No Rash PSYCH; Flat affect Assessment & Plan Assessment/Plan (1) Mass of eye, right: PLAN: Plan Patient is a 59-year-old lady who presented to the emergency department with intractable headache found to have a right orbital mass. Arrangement was made for patient to be transferred to [facility]. Patient had to be admitted pending bed availability 1. Right eye orbital mass Imaging studies did the most soft tissue mass along the medial extraconal space of the right orbit with bony erosion/destruction of the medial wall of the right ethmoid sinus. Arrangements were made for patient to be transferred to [facility] pending bed availability for evaluation of possible neoplastic lesion ? 10/29/2024; transferred to [facility] still pain ? 10/30/2024; still waiting for a bed to be transferred to [facility] ? 10/31/2024. Call has been placed to [facility] requesting updates regarding patient transfer still no bed availability, explained to patient. 2. History of renal cell carcinoma ? Status post partial nephrectomy in 2022 has since remained in remission 3. Hypertension ? Blood pressure controlled, home medications continued with dose adjustment as needed 4. Dyslipidemia ?Patient is on statin therapy, continued at home dose 5. GERD ? Patient is on 6. DVT prophylaxis: Lovenox. Charges/Coding Visit Charges Inpatient E&M: 17753 Subs Hosp L1 Date medically ready for discharge: 10/24/24 Reason for DC delay: Transfer delay to tertiary center
[2024-10-31 08:36] VITALS: PULSE 70
[2024-10-31 08:38] VITALS: BP 95/61; PULSE 72; RESP 18; TEMP 36.3; O2SAT 100
[2024-10-31] MEDS: Senna Tablet 1 TABLET PO ×2 (08:40→19:44)
--- NOTE | 2024-10-31 10:46 | NURSING ---
talked with [facility] transfer center, they state the are still awaiting bed on their hemoc unit. states no anticipated date for bed. states system is at capacity and holding at all regional and main campuses. Dr. Berkowitz updated.
--- NOTE | 2024-10-31 13:21 | CASEMGMT ---
Tertiary Insurance review for hospitals In-network with?[employer] insurance if transfer is recommended is as follows: [facility], [facility], [place], [facility], [facility], [facility], , [place], [facility], [facility], and [place]. Sierra Orourke, Discharge Planning Asst.
--- NOTE | 2024-10-31 13:21 | CASEMGMT ---
Tertiary Insurance review for hospitals In-network with?[employer] insurance if transfer is recommended is as follows: [facility], [facility], [place], [facility], [facility], [facility], , [place], [facility], [facility], and [place]. Sierra Orourke, Discharge Planning Asst.
--- NOTE | 2024-10-31 13:38 | CASEMGMT ---
Addendum entered by Cierra Hernandez 10/31/24 15:18: SW and hospitalist coordinated on care plan. Hospitalist met with pt; additional choices discussed and referrals made. SW remains available to follow. JOHNSON Vasquez Original Note: Social Work- SW met with pt to offer support and discuss transfer status as requested by pt. Pt agreeable to additional facilities. Tertiary list placed and hospitalist notified. Pt requested to complete directives; SAMRA completed directives with pt and provided original and copies for agents to pt. SW placed a copy of the chart and a copy for scanning into medical records. Pt named isidoro Sabino (primary) and Nleson (alternate) as agents. JOHNSON Vasquez
--- NOTE | 2024-10-31 14:16 | NURSING ---
Adelso from transfer center called gave her the vital signs from this am, informed pt is frustrated, this is day six, adelso said she will reach out to bed management.
--- NOTE | 2024-10-31 14:33 | NURSING ---
Spoke with Carmen the intake person for transfers, stated there is a list but will take it to the bed coordinator, she requested a demographic sheet, and this nurse asked [place] the sectary to fax it to: [phone].
[2024-10-31 14:58] VITALS: BP 103/77; PULSE 69; RESP 18; TEMP 36.2; O2SAT 99
--- NOTE | 2024-10-31 15:12 | NURSING ---
unable to reach the nurse, intake person took this nurses phone number and will have the nurse call me.
--- NOTE | 2024-10-31 15:12 | NURSING ---
unable to reach the nurse, intake person took this nurses phone number and will have the nurse call me.
--- NOTE | 2024-10-31 15:18 | CASEMGMT ---
Social Work- SW received notice that pt accepted at [facility] and will transfer. Pt has been notified. JOHNSON Vasquez
--- NOTE | 2024-10-31 15:18 | CASEMGMT ---
Social Work- SW received notice that pt accepted at [facility] and will transfer. Pt has been notified. JOHNSON Vasquez
--- NOTE | 2024-10-31 15:21 | DS.PCM_ITS ---
Providers Date of Admission: 10/24/24 Date of Discharge: 10/31/24 Primary Care Physician: Dr. Maciel Castaneda MD Reason For Visit: RIGHT ORBITAL MASS W/PAIN Diagnosis Discharge Diagnosis (1) Mass of eye, right: Status: Acute Code(s): H57.89 - Other specified disorders of eye and adnexa Plan Patient is a 59-year-old lady who presented to the emergency department with intractable headache found to have a right orbital mass. Arrangement was made for patient to be transferred to [facility]. Patient had to be admitted pending bed availability 1. Right eye orbital mass Imaging studies did the most soft tissue mass along the medial extraconal space of the right orbit with bony erosion/destruction of the medial wall of the right ethmoid sinus. Arrangements were made for patient to be transferred to [facility] pending bed availability for evaluation of possible neoplastic lesion ? 10/29/2024; transferred to [facility] still pain ? 10/30/2024; still waiting for a bed to be transferred to [facility] ? 10/31/2024. Call has been placed to [facility] requesting updates regarding patient transfer still no bed availability, explained to patient. ? Patient was transferred to [facility] once bed became 2. History of renal cell carcinoma ? Status post partial nephrectomy in 2022 has since remained in remission 3. Hypertension ? Blood pressure controlled, home medications continued with dose adjustment as needed 4. Dyslipidemia ?Patient is on statin therapy, continued at home dose 5. GERD ? Patient is on 6. DVT prophylaxis: Lovenox. Medications at Discharge Home Medications lisinopril 20 mg tablet 20 mg PO DAILY 02/25/20 pantoprazole 40 mg tablet,delayed release 40 mg PO DAILY 02/25/20 atorvastatin 10 mg tablet 10 mg PO QHS cholesterol 10/24/24 estradiol 1 mg tablet 1 mg PO DAILY 10/24/24 Hospital Course Summary of Care Provided Minutes Spent on Discharge: 45 Physical Exam Narrative GENERAL: cooperative HEENT: Atraumatic; normocephalic EYES; Anicteric, proptosis involving the right NECK; supple, normal thyroid, RESPIRATORY: Diminished to auscultation CARDIOVASCULAR: Regular S1 S2, GI: soft, normoactive bowel sounds, : No Renal angle tenderness; EXTREMITIES: No edema, no clubbing, MUSCULOSKELETAL: no muscle wasting NEURO: Awake; no lateralizing signs. SKIN: No Rash PSYCH; Flat affect Weight / BMI Weight Weight: 81.6 kg Body Mass Index (BMI) 29.0 ABG / Lab / Microbiology Data 10/31/24 05:44 10/31/24 05:44 Laboratory: Laboratory Results - last 24 hr 10/31/24 05:44: WBC 7.8, RBC 4.18 L, Hgb 11.8 L, Hct 35.4 L, MCV 84.7, MCH 28.2, MCHC 33.3, RDW Std Deviation 40.1, RDW Coeff of Robbi 13.1, Plt Count 256, MPV 9.6, Immature Gran % (Auto) 0.100, Neut % (Auto) 53.3, Lymph % (Auto) 34.6, [place] % (Auto) 7.0, Eos % (Auto) 4.5, Baso % (Auto) 0.5, Absolute Neuts (auto) 4.2, Absolute Lymphs (auto) 2.71, Nucleated RBC % 0, Sodium 137, Potassium 4.4, Chloride 104, Carbon Dioxide 23.7, Anion Gap 9, BUN 18, Creatinine 0.99, Estim Creat Clear Calc 65.89, Est GFR (MDRD) Non-Af 65, BUN/Creatinine Ratio 18.5, Glucose 86, Calcium 8.6 D/C Instructions Discharge Activity: Return to Normal Activity Call your doctor if you observe: Fever of 101 or Higher, Shortness of breath, Fainting spells and Chest pain DC O2, CPAP, BIPAP Needs Home O2 Discharge instructions: No Meaningful Use Info Meaningful Use Meaningful Use Diagnoses (Choose all that apply): None applicable Discharge Plan Admission Admit Date/Time: 10/24/24 21:30 Attending Provider: Azam Berkowitz Primary Care Provider: Maciel Castaneda Consulting Providers: Sohan Jones; Susannah Sullivan Discharge Orders/Prescriptions Prescriptions: No Action lisinopril 20 MG tablet 20 mg PO DAILY pantoprazole 40 MG tablet 40 mg PO DAILY atorvastatin 10 mg tablet 10 mg PO QHS estradiol 1 mg tablet 1 mg PO DAILY Referrals / Follow Up: Maciel Castaneda MD [Primary Care Provider] - Disposition Disposition (needs filled in before D/C Order can be placed): Acute Care Hospital Charges/Coding Visit Charges Inpatient E&M: 83504 Disch Hosp >30min
--- NOTE | 2024-10-31 15:21 | DS.PCM_ITS ---
Providers Date of Admission: 10/24/24 Date of Discharge: 10/31/24 Primary Care Physician: Dr. Maciel Castaneda MD Reason For Visit: RIGHT ORBITAL MASS W/PAIN Diagnosis Discharge Diagnosis (1) Mass of eye, right: Status: Acute Code(s): H57.89 - Other specified disorders of eye and adnexa Plan Patient is a 59-year-old lady who presented to the emergency department with intractable headache found to have a right orbital mass. Arrangement was made for patient to be transferred to [facility]. Patient had to be admitted pending bed availability 1. Right eye orbital mass Imaging studies did the most soft tissue mass along the medial extraconal space of the right orbit with bony erosion/destruction of the medial wall of the right ethmoid sinus. Arrangements were made for patient to be transferred to [facility] pending bed availability for evaluation of possible neoplastic lesion ? 10/29/2024; transferred to [facility] still pain ? 10/30/2024; still waiting for a bed to be transferred to [facility] ? 10/31/2024. Call has been placed to [facility] requesting updates regarding patient transfer still no bed availability, explained to patient. ? Patient was transferred to [facility] once bed became 2. History of renal cell carcinoma ? Status post partial nephrectomy in 2022 has since remained in remission 3. Hypertension ? Blood pressure controlled, home medications continued with dose adjustment as needed 4. Dyslipidemia ?Patient is on statin therapy, continued at home dose 5. GERD ? Patient is on 6. DVT prophylaxis: Lovenox. Medications at Discharge Home Medications lisinopril 20 mg tablet 20 mg PO DAILY 02/25/20 pantoprazole 40 mg tablet,delayed release 40 mg PO DAILY 02/25/20 atorvastatin 10 mg tablet 10 mg PO QHS cholesterol 10/24/24 estradiol 1 mg tablet 1 mg PO DAILY 10/24/24 Hospital Course Summary of Care Provided Minutes Spent on Discharge: 45 Physical Exam Narrative GENERAL: cooperative HEENT: Atraumatic; normocephalic EYES; Anicteric, proptosis involving the right NECK; supple, normal thyroid, RESPIRATORY: Diminished to auscultation CARDIOVASCULAR: Regular S1 S2, GI: soft, normoactive bowel sounds, : No Renal angle tenderness; EXTREMITIES: No edema, no clubbing, MUSCULOSKELETAL: no muscle wasting NEURO: Awake; no lateralizing signs. SKIN: No Rash PSYCH; Flat affect Weight / BMI Weight Weight: 81.6 kg Body Mass Index (BMI) 29.0 ABG / Lab / Microbiology Data 10/31/24 05:44 10/31/24 05:44 Laboratory: Laboratory Results - last 24 hr 10/31/24 05:44: WBC 7.8, RBC 4.18 L, Hgb 11.8 L, Hct 35.4 L, MCV 84.7, MCH 28.2, MCHC 33.3, RDW Std Deviation 40.1, RDW Coeff of Robbi 13.1, Plt Count 256, MPV 9.6, Immature Gran % (Auto) 0.100, Neut % (Auto) 53.3, Lymph % (Auto) 34.6, Edwards % (Auto) 7.0, Eos % (Auto) 4.5, Baso % (Auto) 0.5, Absolute Neuts (auto) 4.2, Absolute Lymphs (auto) 2.71, Nucleated RBC % 0, Sodium 137, Potassium 4.4, Chloride 104, Carbon Dioxide 23.7, Anion Gap 9, BUN 18, Creatinine 0.99, Estim Creat Clear Calc 65.89, Est GFR (MDRD) Non-Af 65, BUN/Creatinine Ratio 18.5, Glucose 86, Calcium 8.6 D/C Instructions Discharge Activity: Return to Normal Activity Call your doctor if you observe: Fever of 101 or Higher, Shortness of breath, Fainting spells and Chest pain DC O2, CPAP, BIPAP Needs Home O2 Discharge instructions: No Meaningful Use Info Meaningful Use Meaningful Use Diagnoses (Choose all that apply): None applicable Discharge Plan Admission Admit Date/Time: 10/24/24 21:30 Attending Provider: Azam Berkowitz Primary Care Provider: Maciel Castaneda Consulting Providers: Sohan Jones; Susannah Sullivan Discharge Orders/Prescriptions Prescriptions: No Action lisinopril 20 MG tablet 20 mg PO DAILY pantoprazole 40 MG tablet 40 mg PO DAILY atorvastatin 10 mg tablet 10 mg PO QHS estradiol 1 mg tablet 1 mg PO DAILY Referrals / Follow Up: Maciel Castaneda MD [Primary Care Provider] - Disposition Disposition (needs filled in before D/C Order can be placed): Acute Care Hospital Charges/Coding Visit Charges Inpatient E&M: 14186 Disch Hosp >30min
[2024-10-31 15:31] VITALS: PULSE 70
--- NOTE | 2024-10-31 16:54 | NURSING ---
report given to Bernie Heller RN at [facility].
--- NOTE | 2024-10-31 16:54 | NURSING ---
report given to Bernie Heller RN at [facility].
[2024-10-31 19:43] VITALS: BP 108/70; PULSE 70; RESP 16; TEMP 36.5; O2SAT 98
== END 2024-10-31 20:55 | disposition short-term general hospital (02) | DRG 565 ==
LOC: ED 15:57 → MS3 21:59
PROVIDERS: Family Medicine; Admitting Provider Hospitalist; Emergency Provider Emergency Medicine; PCP Family Medicine; Visit Provider Internal Medicine
DX: M85.88 Other specified disorders of bone density and structure, other site (principal); Q85.83 Von Hippel-Lindau syndrome; I10 Essential (primary) hypertension; H05.9 Unspecified disorder of orbit; H57.11 Ocular pain, right eye; E78.5 Hyperlipidemia, unspecified; K21.9 Gastro-esophageal reflux disease without esophagitis; D49.2 Neoplasm of unspecified behavior of bone, soft tissue, and skin; E66.3 Overweight; Z68.29 Body mass index [BMI] 29.0-29.9, adult; Z79.899 Other long term (current) drug therapy; Z85.528 Personal history of other malignant neoplasm of kidney
CPT/HCPCS: 36415; 70481; 80048; 80053; 83735; 84100; 85025; 94668; 99284; Q9967; A4216